=== PATIENT | female | born 1930 | race Caucasian/White ===

== ENCOUNTER 2016-06-30 16:28 | Emergency (ER) | payer MEDICARE, BC ==
[2016-06-30] MEDS ORDERED: Triamcinolone Acetonide* 40 MG/ML 1 ML VIAL INTRAARTIC ONE (17:55)
[2016-06-30] MEDS ORDERED: amLODIPine TAB* 5 MG PO ONE (18:50)
[2016-06-30] MEDS ORDERED: hydrALAZINE IV* 20 MG/ML VIAL IV SLOW PU ONE (18:50)
[2016-06-30] MEDS ORDERED: Metoprolol Tartrate TAB* 50 mg PO ONE (18:50)
[2016-06-30] MEDS ORDERED: Meclizine TAB* 12.5 MG PO ONE (18:51)
--- NOTE | 2016-06-30 18:52 | RAD ---
INDICATION: Atraumatic left hip pain COMPARISON: CT abdomen pelvis dated June 24, 2015 TECHNIQUE: 3 views of the left hip were obtained. FINDINGS: The visualized bones of the left hip are well-corticated and properly aligned. Mild degenerative changes of the left hip include mild joint space narrowing and sclerotic change of the acetabular roof.. There is no radiographic evidence of acute fracture or dislocation. Incidental note is made of calcified atherosclerosis involving the visualized left femoral arteries. IMPRESSION: 1. Mild degenerative changes of the left hip. 2. Incidentally noted is calcified atherosclerosis of the visualized iliofemoral arteries similar to that seen on the June 24, 2015 CT examination. Please correlate to any signs or symptoms of claudication pain as a source of the patient's complaint.
[2016-06-30 19:19] LABS: Hematocrit 41 % (35-47); Hemoglobin 13.4 g/dl (12.0-16.0); Mean Corpuscular HGB Conc 32 g/dl (31-36); Mean Corpuscular Hemoglobin 27 pg (27-31); Mean Corpuscular Volume 84 fL (80-97); Mean Platelet Volume 11 um3 (7.4-10.4); Red Blood Count 4.93 10^6/ul (4.0-5.4); Red Cell Distribution Width 15 % (10.5-15); White Blood Count 7.3 10^3/ul (3.5-10.8)
[2016-06-30 19:34] LABS: Albumin 3.7 g/dL (3.2-5.2); BUN/Creatinine Ratio 18.3 (8-20); Calcium 9.7 mg/dL (8.6-10.3); EGFR African American 51.5 (>60); EGFR Non-African American 40.1 (>60); Globulin 4.1 g/dL (2-4); Potassium 3.6 mmol/L (3.5-5.0); Total Bilirubin 0.3 mg/dL (0.2-1.0); Total Protein 7.8 g/dL (6.4-8.9)
[2016-06-30 20:40] VITALS: BP 154/81
[2016-06-30] MEDS ORDERED: NS 0.9% 1000 ML* 1,000 ML IV ONE (20:45)
[2016-06-30 21:27] LABS: C Reactive Protein 2.75 mg/L (< 5.00)
--- NOTE | 2016-06-30 22:10 | ED ---
Inez Eng Claudia, scribed for Louis aSrabia MD on 06/30/16 at 1749 . Lower Extremity - HPI Summary HPI Summary: 86 year old female presents to the ED with left hip pain. Pt notes sudden of Sx about 3 days ago. She denies any mechanical fall or trauma. Pt also admits to dizziness and right ear pain. Pt denies fever. N/V/D. Pt family deny any slurred speech, numbness or tingling in the extremities. Pt son notes that it hurts all the time the pain is not necessarily aggravated with movement or ambulation. - History of Current Complaint Chief Complaint: EDDizziness Stated Complaint: LT HIP PAIN Time Seen by Provider: 06/30/16 17:35 Hx Obtained From: Patient, Family/Lace Burn Out Tender, Medical Records Onset/Duration: Days Pain Intensity: 9 Pain Scale Used: 0-10 Numeric Location: Is Discrete @ - left hip Associated Signs And Symptoms: Negative: Redness, Bruising, Fever, Knee Pain - Allergies/Home Medications Allergies/Adverse Reactions: Allergies Allergy/AdvReac Type Severity Reaction Status Date / Time Prednisone Allergy Severe Hallucinati Verified 04/24/16 14:45 ons Sulfa Antibiotics Allergy Severe Hives Verified 04/24/16 14:45 Diltiazem Allergy Intermediate Hives Verified 04/24/16 14:45 Memantine [From Namenda] Allergy Unknown Unknown Verified 04/24/16 14:45 Reaction Details PMH/Surg Hx/FS Hx/Imm Hx Previously Healthy: Yes Endocrine/Hematology History: Reports: Hx Thyroid Disease, Hx Anemia Denies: Hx Diabetes Cardiovascular History: Reports: Hx Hypertension, Other Cardiovascular Problems/ Disorders - HX ARRYTHMIA Denies: Hx Congestive Heart Failure, Hx Pacemaker/ICD Respiratory History: Denies: Hx Asthma GI History: Reports: Hx Gastroesophageal Reflux Disease, Hx Gastrointestinal Bleed, Hx Ulcer - 3-5 years ago, none recent History: Denies: Hx Renal Disease Musculoskeletal History: Reports: Hx Arthritis Sensory History: Reports: Hx Cataracts - having surgery, Hx Contacts or Glasses - reading glasses Denies: Hx Hearing Aid Opthamlomology History: Reports: Hx Cataracts - having surgery, Hx Contacts or Glasses - reading glasses Neurological History: Reports: Hx Dementia, Other Neuro Impairments/Disorders - dementia Psychiatric History: Reports: Hx Depression, Hx Panic Disorder - SON IS CONCERNED - Cancer History Cancer Type, Location and Year: BREAST CA - DX 15-20 YRS AGO - Surgical History Surgery Procedure, Year, and Place: HYSTERECTOMY ;. DOUBLE MASECTOMY ;. ANNA IN STOMACH FOR BLEEDING ULCER - [facility] ; Hx Anesthesia Reactions: No Infectious Disease History: No Infectious Disease History: Denies: Traveled Outside the [place] in Last 30 Days - Family History Family History: No FHx of Malignant Hypothermia - Social History Occupation: Retired Lives: Alone Alcohol Use: None Substance Use Type: Reports: None Smoking Status (MU): Former Smoker Review of Systems Negative: Fever Eyes: Negative Positive: Ear Ache - right Cardiovascular: Negative Respiratory: Negative Negative: Vomiting, Diarrhea, Nausea Genitourinary: Negative Positive: Other - left hip pain Skin: Negative Negative: Paresthesia, Numbness, Slurred Speech Psychological: Normal All Other Systems Reviewed And Are Negative: Yes Physical Exam Triage Information Reviewed: Yes Vital Signs On Initial Exam: Initial Vitals Temp Pulse Resp BP Pulse Ox 98.1 F 78 18 181/84 100 06/30/16 16:36 06/30/16 16:36 06/30/16 16:36 06/30/16 16:36 06/30/16 16:36 Vital Signs Reviewed: Yes Appearance: Positive: Pain Distress - mild, continues to tell us her hip hurts Eyes: Positive: EOMI, Other: - no nystagmus ENT: Positive: Other - moist mucosa. TMs bilaterally pearly white with no redness some serous fluid present. Negative: Pharyngeal erythema Neck: Positive: Supple, Nontender. Negative: Nuchal Rigidity Cardiovascular: Positive: RRR, S1, S2. Negative: Murmur, Rub Abdomen Description: Positive: Nontender, Soft - flat Musculoskeletal: Positive: Other - tenderness over the left greater trochanter wiht femoral pulses intact. Hip adduction causes some pain along the lateral aspect of the thigh.. Negative: Edema Left, Edema Right Procedures - Procedure Summary Procedure Summary: Left hip consent and timeout verbal and on paper. Risks and benefits discussed with patient and she proceeded. In sterile fashion 40mg kenalog and 3cc of lidocaine without epinephrine. Left greater trochanter was peppered with mixture. Patient tolerated procedure well with no complications. Diagnostics - Vital Signs Vital Signs Temp Pulse Resp BP Pulse Ox 06/30/16 16:36 98.1 F 78 18 181/84 100 - Laboratory Lab Results: Lab Results 06/30/16 06/30/16 Range/Units 18:30 18:30 WBC 7.3 (3.5-10.8) 10^3/ul RBC 4.93 (4.0-5.4) 10^6/ul Hgb 13.4 (12.0-16.0) g/dl Hct 41 (35-47) % MCV 84 (80-97) fL MCH 27 (27-31) pg MCHC 32 (31-36) g/dl RDW 15 (10.5-15) % Plt Count 199 (150-450) 10^3/ul MPV 11 H (7.4-10.4) um3 Neut % (Auto) 72.5 (38-83) % Lymph % (Auto) 17.8 L (25-47) % Mcduffie % (Auto) 7.4 (1-9) % Eos % (Auto) 1.8 (0-6) % Baso % (Auto) 0.5 (0-2) % Absolute Neuts (auto) 5.3 (1.5-7.7) 10^3/ul Absolute Lymphs (auto) 1.3 (1.0-4.8) 10^3/ul Absolute Monos (auto) 0.5 (0-0.8) 10^3/ul Absolute Eos (auto) 0.1 (0-0.6) 10^3/ul Absolute Basos (auto) 0 (0-0.2) 10^3/ul Absolute Nucleated RBC 0.01 10^3/ul Nucleated RBC % 0.1 Sodium 140 (133-145) mmol/L Potassium 3.6 (3.5-5.0) mmol/L Chloride 104 (101-111) mmol/L Carbon Dioxide 29 (22-32) mmol/L Anion Gap 7 (2-11) mmol/L BUN 23 (6-24) mg/dL Creatinine 1.26 H (0.51-0.95) mg/dL Est GFR ( Amer) 51.5 (>60) Est GFR (Non-Af Amer) 40.1 (>60) BUN/Creatinine Ratio 18.3 (8-20) Glucose 92 (70-100) mg/dL Calcium 9.7 (8.6-10.3) mg/dL Total Bilirubin 0.30 (0.2-1.0) mg/dL AST 21 (13-39) U/L ALT 12 (7-52) U/L Alkaline Phosphatase 63 (34-104) U/L C-Reactive Protein 2.75 (< 5.00) mg/L Total Protein 7.8 (6.4-8.9) g/dL Albumin 3.7 (3.2-5.2) g/dL Globulin 4.1 H (2-4) g/dL Albumin/Globulin Ratio 0.9 L (1-3) Result Diagrams: 06/30/16 18:30 06/30/16 18:30 Lab Statement: Any lab studies that have been ordered have been reviewed, and results considered in the medical decision making process. - Radiology LEFT HIP XRAY Xray Interpretation: No Acute Changes - MILD DEGENERATIVE CHANGES OF THE LEFT HIP INCIDENTIALLY NOTED IS CALCIFIED ARTHROSCLEROSIS OF THE VISUALIZED ILIOFEMORAL ARTERIES SIMIALR TO THAT SEEN ON THE May CT EXAMINATION. PLEASE CORRELATE TO ANY SIGNS OR SYMPTOMS OF CLAUDICATION A SOURCE OF THE PATIENT'S COMPLAINT. Radiology Interpretation Completed By: Radiologist - EKG 16:54 Cardiac Rate: NL - 84 beats/min EKG Interpretation: RBBB non changed from previous Lower Extremity Course/Dx - Course Assessment/Plan: She had hip pain HTN reported dizziness; she is doing much better in regard to all of these. She has been ambulated by the nurse and did quite well going to the bathroom has two very attentive sons who are quite helpful and live on either side of her. I believe she is safe for d/c. - Diagnoses Provider Diagnoses: Greater trochanteric bursitis of left hip, HTN (hypertension), Dizziness Discharge - Discharge Plan Condition: Good Disposition: HOME Patient Education Materials: Chronic Hypertension (ED), Dizziness (ED), Hip Pain (ED) Referrals: Keon Manzano DO [Primary Care Provider] - 1 Day The documentation as recorded by the Inez roldan Claudia accurately reflects the service I personally performed and the decisions made by me, Louis Sarabia MD.
== END 2016-06-30 21:51 | disposition home or self-care (01) ==
LOC: ED 16:28
DX: M70.62 Trochanteric bursitis, left hip (principal); I10 Essential (primary) hypertension; R42 Dizziness and giddiness; K21.9 Gastro-esophageal reflux disease without esophagitis; Z85.3 Personal history of malignant neoplasm of breast; F03.90 Unspecified dementia, unspecified severity, without behavioral disturbance, psychotic disturbance, mood disturbance, and anxiety; F32.9 Major depressive disorder, single episode, unspecified; Z87.891 Personal history of nicotine dependence; Z88.2 Allergy status to sulfonamides; E07.9 Disorder of thyroid, unspecified
CPT/HCPCS: 36415; 80053; 85025; 86140; 93005; 99283; A9270-GY; J0360; J3301

== ENCOUNTER 2017-03-16 09:56 | Inpatient (IN) | payer MEDICARE, BC ==
[2017-03-16] MEDS ORDERED: NS 0.9% 1000 ML* 1,000 ML IV ONE (10:15)
--- NOTE | 2017-03-16 10:53 | RAD ---
Indication: Slurred speech yesterday with RIGHT-sided weakness and unsteady gait. Code rico. Comparison: June 24, 2015 Technique: Noncontrast CT vertex of skull through foramen magnum. Report: Severe prominence of the cerebral sulci and moderately severe prominence of the cerebellar fissures with proportional ventricular enlargement reflecting atrophy. Patent basal cisterns. Negative for rioc matter white matter obscuration, intra or extra-axial hemorrhage, or mass effect. Unremarkable orbital structures. Arachnoid granulations noted at the occiput of the skull. No suspicious calvarial or skull base lesions evident. Clear visualized paranasal sinuses and mastoid air spaces. Negative for scalp hematoma. IMPRESSION: No CT evidence for intracranial hemorrhage or gross CT stigmata of ischemic stroke. Advanced involutional change. Results discussed with Dr. Singer 03/16/2017 10:48 AM EDT
--- NOTE | 2017-03-16 11:01 | RAD ---
Indication: Strokelike symptoms beginning yesterday. Comparison: June 25, 2015 chest radiograph. March 13, 2017 esophagram. Technique: Upright AP 1033 hours Report: Mild prominence of interstitial markings. No pulmonary consolidation, pleural effusion, pneumothorax. Unchanged cardiomegaly. Unremarkable central pulmonary vasculature and mediastinal contours. Barium contrast at the splenic flexure of the colon from the recent esophagram. Negative for free air beneath the diaphragm. IMPRESSION: Cardiomegaly. No acute cardiopulmonary process evident.
[2017-03-16 11:03] LABS: Hematocrit 36 % (35-47); Hemoglobin 11.9 g/dl (12.0-16.0); Mean Corpuscular HGB Conc 33 g/dl (31-36); Mean Corpuscular Hemoglobin 28 pg (27-31); Mean Corpuscular Volume 86 fL (80-97); Mean Platelet Volume 10 um3 (7.4-10.4); Red Cell Distribution Width 16 % (10.5-15); White Blood Count 11.3 10^3/ul (3.5-10.8)
[2017-03-16 11:15] LABS: Albumin 3.6 g/dL (3.2-5.2); BUN/Creatinine Ratio 16.7 (8-20); Calcium 9.7 mg/dL (8.6-10.3); EGFR African American 54.4 (>60); EGFR Non-African American 42.3 (>60); Globulin 3.8 g/dL (2-4); Potassium 3.9 mmol/L (3.5-5.0); Total Bilirubin 1.1 mg/dL (0.2-1.0); Total Protein 7.4 g/dL (6.4-8.9)
[2017-03-16 11:17] LABS: Troponin I 0.03 ng/mL (<0.04)
[2017-03-16] MEDS ORDERED: Aspirin SUPP* 300 MG PR ONE (11:48)
[2017-03-16 12:20] LABS: HDL Cholesterol 40.6 mg/dL
--- NOTE | 2017-03-16 13:14 | ED ---
Lee Eng SooYoung, scribed for Evan Singer MD on 03/16/17 at 1006 . Neurological HPI - HPI Summary HPI Summary: An 87 y/o F with alz presents to ED with neurological deficits onset yesterday initially noticed at approx 0800. Per family, pt was ambulatory but was dragging her RLE, due to possible RLE weakness. Family also noted pt had slurred speech. Per famly, pt fell on 02/28/17, she was found on the bathroom and taken to [facility]. She was released from the hospital on 03/07/17, with Dx: concussion, no internal bleeding found. Pt is not on blood thinners. - History of Current Complaint Chief Complaint: EDNeurologicalDeficit Stated Complaint: STOKE LIKE SYMPTOMS STARTED YESTERDAY Hx Obtained From: Family/Lamp Shades Supervisor Onset/Duration: Started days ago - onset yesterday AM, Still Present Timing: Constant Onset Severity: Moderate Current Severity: Moderate Pain Intensity: 0 Pain Scale Used: 0-10 Numeric Associated Signs and Symptoms: Positive: Unsteady Gait - RLE dragging, Weakness - RLE, Impaired Speech - slurred speech - Additional Pertinent History Primary Care Physician: [id number] - Allergy/Home Medications Allergies/Adverse Reactions: Allergies Allergy/AdvReac Type Severity Reaction Status Date / Time Prednisone Allergy Severe Hallucinati Verified 04/24/16 14:45 ons Sulfa Antibiotics Allergy Severe Hives Verified 04/24/16 14:45 Diltiazem Allergy Intermediate Hives Verified 04/24/16 14:45 Memantine [From Namenda] Allergy Unknown Unknown Verified 04/24/16 14:45 Reaction Details PMH/Surg Hx/FS Hx/Imm Hx Previously Healthy: No Endocrine/Hematology History: Reports: Hx Thyroid Disease, Hx Anemia Denies: Hx Diabetes Cardiovascular History: Reports: Hx Hypertension, Other Cardiovascular Problems/ Disorders - HX ARRYTHMIA Denies: Hx Congestive Heart Failure, Hx Pacemaker/ICD Respiratory History: Denies: Hx Asthma GI History: Reports: Hx Gastroesophageal Reflux Disease, Hx Gastrointestinal Bleed, Hx Ulcer - 3-5 years ago, none recent History: Denies: Hx Renal Disease Musculoskeletal History: Reports: Hx Arthritis Sensory History: Reports: Hx Cataracts - having surgery, Hx Contacts or Glasses - reading glasses Denies: Hx Hearing Aid Opthamlomology History: Reports: Hx Cataracts - having surgery, Hx Contacts or Glasses - reading glasses Neurological History: Reports: Hx Dementia, Other Neuro Impairments/Disorders - dementia Psychiatric History: Reports: Hx Depression, Hx Panic Disorder - SON IS CONCERNED - Cancer History Cancer Type, Location and Year: BREAST CA - DX 15-20 YRS AGO - Surgical History Surgery Procedure, Year, and Place: HYSTERECTOMY ;. DOUBLE MASECTOMY ;. ANNA IN STOMACH FOR BLEEDING ULCER - [facility] ; Hx Anesthesia Reactions: No Infectious Disease History: No Infectious Disease History: Denies: Traveled Outside the [place] in Last 30 Days - Family History Family History: No FHx of Malignant Hypothermia - Social History Occupation: Retired Lives: With Family Alcohol Use: None Hx Substance Use: No Substance Use Type: Reports: None Hx Tobacco Use: Yes Smoking Status (MU): Former Smoker Review of Systems Negative: Fever Neurological: Other - pos: RLE "dragging" Positive: Weakness - RLE, Slurred Speech All Other Systems Reviewed And Are Negative: Yes Physical Exam - Summary Physical Exam Summary: VITAL SIGNS: Reviewed. GENERAL: Patient is a well-developed and nourished elderly female who is lying comfortable in the stretcher. Patient is not in any acute respiratory distress. HEAD AND FACE: No signs of trauma. No ecchymosis, hematomas or skull depressions. No sinus tenderness. EYES: PERRLA, EOMI x 2, No injected conjunctiva, no nystagmus. No photophobia. EARS: Hearing grossly intact. Ear canals and tympanic membranes are within normal limits. MOUTH: Oropharynx within normal limits. NECK: Supple, trachea is midline, no adenopathy, no JVD, no carotid bruit, no c- spine tenderness, neck with full ROM. No meningeal signs, no Kernig's or Brudzinskis signs. CHEST: Symmetric, no tenderness at palpation LUNGS: Clear to auscultation bilaterally. No wheezing or crackles. CVS: Regular rate and rhythm, S1 and S2 present, no murmurs or gallops appreciated. ABDOMEN: Soft, non-tender. No signs of distention. No rebound, no guarding, and no masses palpated. Bowel sounds are normal. EXTREMITIES: FROM in all major joints, no edema, no cyanosis or clubbing. NEURO: Alert but not oriented. No acute neurological deficits. Speech is normal and follows commands. SKIN: Dry and warm GCS: 15 Triage Information Reviewed: Yes Vital Signs On Initial Exam: Initial Vitals Temp Pulse Resp BP Pulse Ox 97.8 F 79 14 134/75 99 03/16/17 09:57 03/16/17 09:57 03/16/17 09:57 03/16/17 09:57 03/16/17 09:57 Vital Signs Reviewed: Yes Diagnostics - Vital Signs Vital Signs Temp Pulse Resp BP Pulse Ox 03/16/17 09:57 97.8 F 79 14 134/75 99 - Laboratory Lab Results: Lab Results 03/16/17 03/16/17 03/16/17 Range/Units 10:40 10:40 10:40 WBC 11.3 H (3.5-10.8) 10^3/ul RBC 4.20 (4.0-5.4) 10^6/ul Hgb 11.9 L (12.0-16.0) g/dl Hct 36 (35-47) % MCV 86 (80-97) fL MCH 28 (27-31) pg MCHC 33 (31-36) g/dl RDW 16 H (10.5-15) % Plt Count 319 (150-450) 10^3/ul MPV 10 (7.4-10.4) um3 Neut % (Auto) 84.6 H (38-83) % Lymph % (Auto) 5.7 L (25-47) % Johnston % (Auto) 9.3 H (1-9) % Eos % (Auto) 0 (0-6) % Baso % (Auto) 0.4 (0-2) % Absolute Neuts (auto) 9.6 H (1.5-7.7) 10^3/ul Absolute Lymphs (auto) 0.6 L (1.0-4.8) 10^3/ul Absolute Monos (auto) 1.1 H (0-0.8) 10^3/ul Absolute Eos (auto) 0 (0-0.6) 10^3/ul Absolute Basos (auto) 0 (0-0.2) 10^3/ul Absolute Nucleated RBC 0 10^3/ul Nucleated RBC % 0 INR (Anticoag Therapy) 0.97 (0.89-1.11) APTT 25.9 L (26.0-36.3) seconds Sodium 137 (133-145) mmol/L Potassium 3.9 (3.5-5.0) mmol/L Chloride 104 (101-111) mmol/L Carbon Dioxide 27 (22-32) mmol/L Anion Gap 6 (2-11) mmol/L BUN 20 (6-24) mg/dL Creatinine 1.20 H (0.51-0.95) mg/dL Est GFR ( Amer) 54.4 (>60) Est GFR (Non-Af Amer) 42.3 (>60) BUN/Creatinine Ratio 16.7 (8-20) Glucose 109 H (70-100) mg/dL Lactic Acid (0.5-2.0) mmol/L Calcium 9.7 (8.6-10.3) mg/dL Total Bilirubin 1.10 H (0.2-1.0) mg/dL AST 21 (13-39) U/L ALT 13 (7-52) U/L Alkaline Phosphatase 89 (34-104) U/L Troponin I 0.03 (<0.04) ng/mL Total Protein 7.4 (6.4-8.9) g/dL Albumin 3.6 (3.2-5.2) g/dL Globulin 3.8 (2-4) g/dL Albumin/Globulin Ratio 0.9 L (1-3) Triglycerides 106 mg/dL Cholesterol 171 mg/dL LDL Cholesterol Pending HDL Cholesterol Pending Blood Type Antibody Screen 03/16/17 03/16/17 Range/Units 10:40 10:40 WBC (3.5-10.8) 10^3/ul RBC (4.0-5.4) 10^6/ul Hgb (12.0-16.0) g/dl Hct (35-47) % MCV (80-97) fL MCH (27-31) pg MCHC (31-36) g/dl RDW (10.5-15) % Plt Count (150-450) 10^3/ul MPV (7.4-10.4) um3 Neut % (Auto) (38-83) % Lymph % (Auto) (25-47) % Johnston % (Auto) (1-9) % Eos % (Auto) (0-6) % Baso % (Auto) (0-2) % Absolute Neuts (auto) (1.5-7.7) 10^3/ul Absolute Lymphs (auto) (1.0-4.8) 10^3/ul Absolute Monos (auto) (0-0.8) 10^3/ul Absolute Eos (auto) (0-0.6) 10^3/ul Absolute Basos (auto) (0-0.2) 10^3/ul Absolute Nucleated RBC 10^3/ul Nucleated RBC % INR (Anticoag Therapy) (0.89-1.11) APTT (26.0-36.3) seconds Sodium (133-145) mmol/L Potassium (3.5-5.0) mmol/L Chloride (101-111) mmol/L Carbon Dioxide (22-32) mmol/L Anion Gap (2-11) mmol/L BUN (6-24) mg/dL Creatinine (0.51-0.95) mg/dL Est GFR ( Amer) (>60) Est GFR (Non-Af Amer) (>60) BUN/Creatinine Ratio (8-20) Glucose (70-100) mg/dL Lactic Acid 1.2 (0.5-2.0) mmol/L Calcium (8.6-10.3) mg/dL Total Bilirubin (0.2-1.0) mg/dL AST (13-39) U/L ALT (7-52) U/L Alkaline Phosphatase (34-104) U/L Troponin I (<0.04) ng/mL Total Protein (6.4-8.9) g/dL Albumin (3.2-5.2) g/dL Globulin (2-4) g/dL Albumin/Globulin Ratio (1-3) Triglycerides mg/dL Cholesterol mg/dL LDL Cholesterol HDL Cholesterol Blood Type A Positive Antibody Screen Pending Result Diagrams: 03/16/17 10:40 03/16/17 10:40 Lab Statement: Any lab studies that have been ordered have been reviewed, and results considered in the medical decision making process. - Radiology CXR Xray Interpretation: No Acute Changes - IMPRESSION: Cardiomegaly. No acute cardiopulmonary process evident. ED physician has reviewed this radiology report and agrees Radiology Interpretation Completed By: Radiologist - CT Brain CT CT Interpretation: No Acute Changes - IMPRESSION: No CT evidence for intracranial hemorrhage or gross CT stigmata of ischemic stroke. Advanced involutional change. ED physician has reviewed this radiology report and agrees. CT Interpretation Completed By: Radiologist - EKG 1052 EKG Rhythm: Atrial Fibrillation - at 69bpm EKG Comparison: No Significant Change - from 06/30/16 NIH Scale - NIH Scale Level of Consciousness: Alert/Keenly Responsive Ask Patient the Month and His/Her Age: Neither Correct/Aphasic Ask Pt to Open/Close Eyes and Corporate Auditor/Release Non-Paretic Hand: Both Correctly Best Gaze (Only Horizontal Eye Movement): Normal Visual Field Testing: No Visual Loss Facial Paresis-Pt to Smile & Close Eyes or Grimace Symmetry: Normal/Symmetrical Motor Function - Right Arm: No Drift-Holds 10 Seconds Motor Function - Left Arm: No Drift-Holds 10 Seconds Motor Function - Right Leg: Drifts LT 10 seconds Motor Function - Left Leg: No Drift-Holds 10 Seconds Limb Ataxia-Must be out of Proportion to Weakness Present: Present in One Limb Sensory (Use Pinprick to Test Arms/Legs/Trunk/Face): Normal Best Language (Describe Picture, Name Items): No Aphasia Dysarthria (Read Several Words): Normal Extinction and Inattention: No Abnormality Total Score: 4 Course/Dx - Course Course Of Treatment: An 87 y/o F with alz presents to ED with neurological deficits onset yesterday initially noticed at approx 0800. Per family, pt was ambulatory but was dragging her RLE, due to possible RLE weakness. Family also noted pt had slurred speech. Per famly, pt fell on 02/28/17, she was found on the bathroom and taken to [facility]. She was released from the hospital on 03/07/17, with Dx: concussion, no internal bleeding found. Pt is not on blood thinners. Brain CT shows "No CT evidence for intracranial hemorrhage or gross CT stigmata of ischemic stroke. Advanced involutional change." Assessment/Plan: In the ED course an IV access was obtained. Patient was placed in a quality assurance monitor. Patient was started with IV fluids. Labs within normal limits except for. Troponin #1: 0.03. EKG shows atrial fibrillation similar to previous. CXR impression: No acute pathology. Head CT impression: No CT evidence for intracranial hemorrhage or gross CT stigmata of ischemic stroke. Advanced involutional change. She was started in [facility]. I discussed the case with Dr. Holder from Neurology and agrees with management and he recommends to admit the patient to the hospitalist services. I discuss my physical exam, findings and test results with Dr. Goodwin from the hospitalist services and she agrees to admit patient to his services. Patient is hemodynamically stable alert but not oriented. - Differential Dx Differential Diagnoses Neuro: Positive: Cerebrovascular Accident, Contusion, Seizure Disorder, Transient Ischemic Attack - Diagnoses Provider Diagnoses: CVA (cerebral vascular accident) - Physician Notifications Discussed Care Of Patient With: Evan Mondragon - radiology Time Discussed With Above Provider: 10:49 Instructed by Provider To: Other - Discussing Brain CT: atrophy, no acute findings. Discharge - Discharge Plan Condition: Stable Disposition: ADMITTED TO [facility] Consult Consult: 1115: Consult with Dr. Holder, neuro Recommends aspirin and admission. 1140: Consult with Dr. Goodwin, hospitalist Will admit pt. The documentation as recorded by the Lee roldan SooYoung accurately reflects the service I personally performed and the decisions made by me, Eavn Singer MD.
[2017-03-16] MEDS ORDERED: Labetalol IV* 5 MG/ML 20 ML VIAL IV PUSH PRN (13:15)
[2017-03-16] MEDS ORDERED: Iodixanol* (CONTRAST) 320 MG/ML 100 ML SDV IV ONE (13:38)
[2017-03-16 14:49] LABS: Free T4 1.39 ng/dL (0.61-1.12)
[2017-03-16 14:57] LABS: Folate 14.19 ng/mL (>3.99)
[2017-03-16 14:58] LABS: Vitamin B12 > 1450 pg/mL (180-914)
--- NOTE | 2017-03-16 15:42 | CONS ---
CONSULTATION REPORT: DATE OF CONSULT: 03/16/17 LOCATION: Currently in room 451, bed 1. REASON FOR CONSULT: Right lower extremity weakness. HISTORY OF PRESENT ILLNESS: Ms. Schroeder is an 87-year-old female with a history of breast cancer status post bilateral mastectomy, a history of dementia, a history of hypertension and hypothyroidism who came to the hospital today after developing acute onset of right lower extremity weakness and speech difficulties yesterday at around 8 a.m. She was recently transported to [place] after sustaining a fall 2 weeks ago. At that time, she did suffer some head trauma, was admitted to the hospital and monitored for 5 days. The family reports that the workup was negative and that she had no bleeding. She was eventually discharged last week. She has been at home for about a week and the family states that she was doing well recovering, was initially using a walker but had stopped using it. Normally, she is functional. She lives with her daughter, but is able to do all of her ADL's and normally is conversant, although confused. She was previously on dementia medications, but when she was in [place], the family reported that she had been having significant diarrhea and the medications were stopped. The family felt that the benefit was minimal at that point. She apparently does not take an aspirin at home, but does take blood pressure medication. Yesterday, at around 8 a.m. she got up and daughter notes that she suddenly started to feel off balance and had difficulty moving her right leg. Her daughter states that she was dragging that leg. In addition, she developed some speech difficulties, was having more difficulty producing speech and saying words. This persisted throughout the day and overnight, and this morning the family became worried and brought her to the ER. She was well outside of the TPA window. The family states that her symptoms have persisted and are about the same, have not improved. They state that she has not complained of any headache, shortness of breath, dyspnea on exertion, nausea, vomiting, constipation. Has had some recent diarrhea, but that has improved off the dementia medication. She has had no focal left-sided findings. The family does note that she has had some problem swallowing and she was recently sent for a modified barium swallow for evaluation. The family states that she had trouble swallowing solids and often times felt like food would not go down despite multiple drinks of water. She has apparently not choked at this point. This is a relatively new finding in the last month or so. There has been no recent fevers. No recent illnesses. No reports of chest pain or palpitations. No additional falls since 2 weeks ago and no additional head trauma. The patient is a very poor historian and unable to give any history. The family was the primary source of history. PAST MEDICAL HISTORY: As noted above. PAST SURGICAL HISTORY: Includes the bilateral mastectomies. MEDICATIONS: Her medications at home include: 1. Metoprolol 150 mg p.o. b.i.d. 2. Levothyroxine 50 mcg p.o. daily. 3. Vitamin B12 tablet 2500 mcg daily. 4. Vitamin D3 5000 units daily. 5. Calcium carbonate 0.5 tablets p.o. daily. ALLERGIES: PREDNISONE, SULFA ANTIBIOTICS, DILTIAZEM, and MEMANTINE. SOCIAL HISTORY: No tobacco, alcohol, or drug use. She lives with her daughter. She previously was and worked as a homemaker. REVIEW OF SYSTEMS: Review of systems in 14-organ systems was attempted. The patient has a difficult time expressing herself and the review of systems is as noted above per the family. Otherwise, the patient denies any issues. It was a difficult review of systems. PHYSICAL EXAM: Vital Signs: Blood pressure 148/97 to 164/87, pulse in the 70s , respiratory rate 16 to 18, pulse ox is 98% to 99%. In general, she is a well - nourished, well-developed female in no acute distress, sitting in her hospital bed. She does look somewhat confused. HEENT: She is normocephalic. She does have bruising around the right eye on the cheek. Her sclerae are anicteric. Her mucous membranes are moist. Her oropharynx is clear. Her neck is supple. No thyromegaly. No carotid bruits. Chest: Clear to auscultation bilaterally. Cardiovascular: Regular rate and rhythm without murmurs. Abdomen : Nontender, nondistended. Extremities: There is no clubbing, cyanosis, or edema appreciated. On neurologic examination, she is awake, alert and oriented to person. Otherwise, she is disoriented. Her speech is nonfluent at this point. She occasionally could produce a word, although it was garbled and was unable to string together sentences. She did follow commands. Cranial nerves; pupils are equally round and reactive to light. Extraocular muscles are intact. Her visual sterling appear full to confrontation with blink. There is no nystagmus appreciated. Her face, she has a subtle right lower facial droop with weakened smile. Sensation is difficult to assess, but appears to be intact. Hearing appears diminished bilaterally, but intact. Her tongue is midline. Her palate raises symmetrically. Sternocleidomastoid and trapezius were difficult to assess. Motor Exam: She spontaneously moves all extremities antigravity. There is no drift in the upper extremities. There is significant drift in the right lower extremity. She is unable to lift it off the bed, but unable to maintain it 30 degrees for more than a few seconds. Her left leg, there is no drift appreciated. In general, she is 4+/5 in the upper extremities with some poor effort. She is 4+/5 in the left lower extremity with poor effort and the right lower extremity was difficult to fully assess, but there is resistance throughout the upper and lower extremity. Sensation was grossly intact to light touch and pain. She withdrew and grimaced x4. DTRs were 1+ in the upper extremities bilaterally, 1+ at the patella bilaterally, absent at the ankles. Withdrawal Babinski's bilaterally. Finger-to- nose and [id number] could not be done, because she was unable to comply and fully understand, but her rapid alternating movements appear slow but intact. No tremor was appreciated. Gait was not tested at this time. DIAGNOSTIC STUDIES/LAB DATA: Her lab work included CBC with diff with a white count of 11.3, hemoglobin of 11.9. She has a left shift with 84.6% neutrophils. INR 0.97. PTT of 25.9. Chemistry; creatinine of 1.20, glucose of 109, total bili of 1.10, otherwise normal. Her LDL cholesterol 109, HDL of 40.6 , cholesterol 171, triglycerides of 106. Report: She did have a brain which was reviewed. The CT showed no acute changes per my read. The impression is read as no CT evidence of intracranial hemorrhage or gross CT stigmata of ischemic stroke. Advanced involutional changes were noted. ASSESSMENT AND PLAN: Ms. Schroeder is an 87-year-old female with a history of breast cancer status post mastectomies, a history of hypertension, a history of prior fall 2 weeks ago, transferred to the [facility] where the family reports that the workup was negative. She was discharged home and doing well when she developed acute onset of right lower extremity weakness and speech difficulty. She does have [id number] dementia, but is typically able to function at home living with her daughter to participate in her ADLs. Since 8 o'clock yesterday morning, she has had more difficulty walking and noted weakness in the right lower extremity and what appears to be more of an expressive type aphasia. She is able to follow commands in general and seems to understand what I am saying, but has a very hard time expressing herself. In addition, she has had some dysphagia which has been ongoing for at least several weeks and predates her symptoms. The plan is to admit the patient to telemetry for further monitoring and stroke workup. She will have an MRI of the brain tomorrow. We will get a CTA of the head and neck, an echocardiogram and lab work to look for reversible causes of stroke. We will allow for some permissive hypertension overnight and she did receive a dose of aspirin in the ER. We will continue on 81 mg aspirin. She is currently n.p.o. and Speech Therapy has been consulted. We will also attempt to find the report on her recent swallowing study. For now though, we will keep her n.p.o. pending those results. We will likely start a statin, but I think we can hold until we have a swallowing study. She will need some physical therapy, occupational therapy as well as speech therapy. She is a nondiabetic, but we will monitor for any evidence of diabetes. She is a nonsmoker. As far as her dementia is concerned, I will keep her off medications at this point as she had side effects in the past with diarrhea. This is something that will need to be followed more skilled nursing, but the family is comfortable with her not being on medications at this point. I will continue to follow her closely, make further recommendations as necessary. Thank you for the opportunity to participate in her care. [id number]/[facility] #: [id number] PRINCESS
[2017-03-16 15:46] LABS: Urine Bilirubin Negative (Negative); Urine Glucose Negative (Negative); Urine Nitrite Negative (Negative)
--- NOTE | 2017-03-16 16:01 | RAD ---
INDICATION: Suspected stroke. COMPARISON: Noncontrast head CT of the same date. June 02, 2013 CT angiogram head and neck. TECHNIQUE: Multidetector CT images were obtained from the aortic arch to the vertex of the head with 80 mL Visipaque 320 IV contrast. Arterial phase of enhancement. Multiplanar reformation including maximum intensity projection. 3-D arterial volume rendering. Stenosis estimations based on denominator of distal arterial diameter. NECK ANGIOGRAM REPORT: Negative for ostial stenosis at the aortic arch branch vessels. Markedly tortuous RIGHT brachiocephalic and common carotid artery. Mild calcific plaque at the RIGHT carotid bulb and proximal internal carotid artery with approximate 40% stenosis resulting. Markedly tortuous LEFT common carotid artery. Only minimal calcific plaque at the LEFT carotid bulb and proximal internal carotid artery without resulting stenosis. Markedly tortuous LEFT internal carotid artery. Patent diminutive RIGHT vertebral artery. Dominant LEFT vertebral artery is patent. Multilevel degenerative cervical spondylosis and grossly unchanged degenerative 2.5 mm C4-C5 anterolisthesis. Negative for central canal stenosis. NECK ANGIOGRAM IMPRESSION: Negative for hemodynamic significant carotid artery stenosis. Normal variant dominant LEFT and diminutive RIGHT vertebral artery with both vertebral arteries patent. HEAD ANGIOGRAM REPORT: Atherosclerotic plaque at the carotid siphons with up to 50% stenosis resulting. Patent M1 and M2 segments of the middle cerebral arteries. Normal variant absent LEFT A1 segment with both A2 anterior cerebral arteries patent and supplied by a dominant LEFT A1 segment. Patent tortuous basilar artery and unremarkable cerebellar artery origins. Patent posterior cerebral arteries are supplied by the posterior circulation with normal variant hypoplastic posterior communicating arteries. No intracranial aneurysm or vascular malformation evident. Normal opacification of the dominant dural venous sinuses. HEAD ANGIOGRAM IMPRESSION: Normal variation without hemodynamic significant intracranial stenosis or large vessel occlusion. CPT II: CPT II Codes: 3100F
[2017-03-16] MEDS: NS 0.9% 1000 ML* 1,000 ML IV SCH (19:53)
[2017-03-16] MEDS: Heparin VIAL(*) 5000 UNITS/ML VIAL (FIVE THOUSAND) SUBCUT SCH (21:15)
--- NOTE | 2017-03-16 22:30 | HP ---
CC: Dr. Keon Manzano * HISTORY AND PHYSICAL: DATE OF ADMISSION: 03/16/17 PRIMARY CARE PROVIDER: Dr. Keon Manzano ATTENDING PHYSICIAN: Rocio Perry MD * (dictated by Rd Gandhi NP). CHIEF COMPLAINT: Right-sided weakness and slurred speech. HISTORY OF PRESENT ILLNESS: Ms. Schroeder is an 87-year-old female with past medical history significant for atrial fibrillation, off anticoagulation, hypertension, hypothyroidism, dementia, depression, history of gastric ulcer, who presented to the emergency room with concerns for right lower extremity weakness and speech difficulties. I would like to start this H and P by stating that there was no family at bedside at the time of my evaluation of the patient. The medical record was obtained from the chart. According to the patient's chart, it appears that starting approximately 8 a.m. yesterday, the patient was noted to be dragging her right foot when walking and having speech difficulty. She lives with her daughter. She had last been seen well, I believe, yesterday at 7:30 a.m. The patient went throughout her day and as these symptoms continued, the family decided to bring her to the emergency room for evaluation. According to the records, the patient had no recent complaints of fever or chills, shortness of breath, or complaints of headache. She was just hospitalized in [place] 2 weeks ago after a head trauma where she was hospitalized for 5 days and then has been home for approximately a week. It is also to note that the patient has been having trouble swallowing. On 03/13/17, she had a barium swallow study showing a delayed passage of a 1.3 cm barium pill at the esophageal junction. The patient herself is a poor historian due to her underlying dementia. While in the emergency room, the patient had a brain CT showing no intracranial hemorrhage or CVA. She was out of the tPA window. She had an EKG showing a rhythm of AFib and a rate of 69 and a right bundle branch block. This EKG was similar to her previous EKGs. She had a chest x-ray showing cardiomegaly. She had labs. They were significant for an elevated white blood cell count of 11.3. She was noted to have a left shift with neutrophils of 84.6%. She was also noted to have a creatinine of 1.24, but this appears to be within her baseline over the past year and a half and the hospitalists were asked to evaluate the patient for admission. PAST MEDICAL HISTORY: 1. Atrial fibrillation, not currently anticoagulated. 2. Hypertension. 3. Hypothyroidism. 4. Dementia. 5. Depression. 6. Gastric ulcer. 7. Anemia. 8. History of upper GI bleed. 9. Vertigo. 10. History of breast cancer. PAST SURGICAL HISTORY: 1. Status post hysterectomy. 2. Status post bilateral mastectomy. HOME MEDICATIONS: 1. Metoprolol tartrate 150 mg oral twice daily. 2. Levothyroxine 50 mcg oral daily. 3. Vitamin B12 2500 mcg oral daily. 4. Vitamin D 5000 units oral daily. 5. Os-Ced 500 plus D half a tablet oral daily. ALLERGIES: PREDNISONE, SULFA, DILTIAZEM, and NAMENDA. FAMILY HISTORY: Unable to obtain due to the patient's dementia. SOCIAL HISTORY: According to the record, the patient does not smoke, drink alcohol, or use recreational drugs. She lives with her son. Her son Popeye Schroeder will be her surrogate decision maker in the event that she is unable to make decisions for herself. REVIEW OF SYSTEMS: I performed a 14-point review of systems. All the pertinent positives and negatives are mentioned in the history of present illness. It is to note that the patient has been having diarrhea that has improved since stopping Namenda. The remaining review of systems are negative. PHYSICAL EXAMINATION GENERAL: The patient is alert, pleasant, appears to be in no acute distress. VITAL SIGNS: Temperature 97.8, heart rate 77, respiratory rate 16, O2 saturation 99% on room air, blood pressure 148/97. HEENT: Normocephalic, atraumatic. Pupils are equal and reactive to light. Extraocular movements are intact. There is no nystagmus noted. RESPIRATORY: There is no accessory muscle use. Lungs are clear to auscultation bilaterally. CARDIOVASCULAR: Regular rate and rhythm. S1 and S2 present. There are no murmurs, rubs, or gallops heard. ABDOMEN: Soft, nontender, nondistended. There are bowel sounds present x4. EXTREMITIES: There is no lower extremity edema. DP and PT pulses are 2+ and symmetric. MUSCULOSKELETAL: There is no clubbing or cyanosis noted. The patient exhibits 5/5 strength to the left lower extremity and 4/5 to the right lower extremity. The patient is able to plantar flex bilateral, but is unable to follow the directions to dorsiflex. NEUROLOGICAL: The patient is alert and oriented to self, but confused. Cranial nerves II through XII are grossly intact with what the patient was able to follow instructions with. Smile is symmetric. Tongue is midline. The patient was unable to follow my directions to do heel from ankle to knee bilateral. No pronator drift was noted. PSYCHOLOGICAL: The patient is calm and cooperative. SKIN: There is no rashes or abnormalities seen. DIAGNOSTIC STUDIES/LABORATORY DATA: Sodium 137, potassium 3.9, chloride 104, CO2 27, BUN 20, creatinine 1.20, glucose 109. INR 0.97, PTT 25.9, troponin 0.03. White blood cell count 11.3, again noted to have left shift with neutrophils 84.6%, hemoglobin 11.9, hematocrit 36, and platelet count 319,000. EKG shows atrial fibrillation with a rate of 69 and a right bundle branch block. There is ST depression in leads V4 to V6 and in lead II. This is consistent with previous EKGs. Previous EKG was from 06/30/16. Chest x-ray from today. Radiologist's impression: Cardiomegaly. No cardiopulmonary disease noted. Brain CT from today. Radiologist's impression. No CT evidence for intracranial hemorrhage or gross CT stigmata of ischemic stroke, advanced involutional change. IMPRESSION: Ms. Schroeder is an 87-year-old female with past medical history significant for atrial fibrillation, hypertension, hypothyroidism, dementia, depression, history of GI bleed, vertigo, and breast cancer, who presents to the emergency room with right lower extremity weakness and speech difficulties starting yesterday. She will be admitted as an inpatient for possible cerebrovascular accident. ASSESSMENT/PLAN: 1. Possible cerebrovascular accident. The patient's brain CT from today shows no acute intracranial hemorrhage or stroke. The patient will be monitored on telemetry. She will have neuro checks q. 2 hours. We will check a fasting lipid in the morning. We will also order an echocardiogram. We will get a PT/ OT and Speech Therapy evaluation. We will check a hemoglobin A1c. The patient will be continued on aspirin. The patient has had a neurological consult, and we will get a CTA of her head in addition to an MRI in the morning. For now, due to the patient having some difficulty swallowing, we will hold on her statin until she has a dysphagia screening and a Speech Therapy consultation. It is to note that the patient is not anticoagulated for her atrial fibrillation. 2. Hypertension. The patient's blood pressures have been relatively controlled while in the ER. We are going to hold her home medications to allow for permissive hypertension. She will have labetalol as needed for systolic blood pressure greater than 200 or a diastolic pressure greater than 105. 3. Elevated creatinine. I suspect the patient is at her baseline. We will give her a little gentle IV hydration overnight and see if this changes at all. 4. Elevated troponin. The patient's troponin in slightly elevated at 0.03. This appears to be at her baseline. She denies any chest pain. We will not continue to trend her troponins. 5. Hypothyroidism. We will check a TSH. We will continue her on her home levothyroxine. 6. Atrial fibrillation. The patient is not currently anticoagulated due to her history of peptic ulcer disease. We will resume her metoprolol tartrate ideally tomorrow after we have allowed for 24 hours of permissive hypertension. 7. Dysphagia. The patient had a barium swallow study on 03/13/17 showing a delayed passage of a 1.3 cm barium pill at the gastroesophageal junction. This is not a new problem for the patient, but I would like her to pass a dysphagia screening before she eats. We will also have speech therapy see her in consultation. 8. Fluids, electrolytes, and nutrition. N.p.o. until the patient is able to pass a dysphagia screening. Then we will resume her on a heart healthy diet if she is able to pass her swallow study. 9. Code status. DNR/DNI. A MOLST has been completed and placed on the chart. 10. DVT prophylaxis. The patient is at highest risk and will have subcutaneous heparin. 11. Disposition. Inpatient. TIME SPENT: Time for this admission was approximately 60 minutes, greater than half of that was spent with the patient doing a physical examination and attempting to discuss medications, past medical history, and events leading up to her arrival today, performing a physical examination and reviewing her chart. The case has been reviewed with the attending Dr. Perry, who agrees with the plan of care. RD JANG, DOOR WORKER [id number]/[facility] #: [id number] PRINCESS
[2017-03-16] MEDS ORDERED: CMCS: Melatonin (NF) 3 MG TAB PO PRN (23:15)
[2017-03-17] MEDS: Heparin VIAL(*) 5000 UNITS/ML VIAL (FIVE THOUSAND) SUBCUT SCH ×3 (05:44→21:10)
[2017-03-17] MEDS ORDERED: Pneumococcal *Vac Polyvalent 0.5 ML VIAL IM ONE (09:00)
[2017-03-17] MEDS: Aspirin EC Low Dose* 81 MG TAB.EC PO SCH (09:14)
[2017-03-17] MEDS: NS 0.9% 1000 ML* 1,000 ML IV SCH ×2 (09:16→11:09)
[2017-03-17 10:03] LABS: BUN/Creatinine Ratio 17.1 (8-20); Calcium 9.4 mg/dL (8.6-10.3); EGFR African American 63.5 (>60); EGFR Non-African American 49.3 (>60); Potassium 3.5 mmol/L (3.5-5.0)
--- NOTE | 2017-03-17 10:31 | PN ---
Subjective Date of Service: 03/17/17 Interval History: She offers no c/o. Not clear if she could make her needs known. Objective Active Medications: Aspirin (Aspirin Ec Low Dose*) 81 mg PO DAILY [facility] Last Admin: 03/17/17 09:14 Dose: 81 mg Heparin Sodium (Porcine) (Heparin Vial(*)) 5,000 units SUBCUT Q8HR [facility] Last Admin: 03/17/17 05:44 Dose: 5,000 units Sodium Chloride (Ns 0.9% 1000 Ml*) 1,000 mls @ 50 mls/hr IV PER RATE [facility] Labetalol HCl (Trandate Iv*) 10 mg IV PUSH Q20M PRN PRN Reason: BLOOD PRESSURE Vital Signs 03/16/17 03/16/17 03/16/17 12:00 14:00 15:39 Temperature 97.5 F 97.3 F Pulse Rate 78 84 118 Respiratory 16 20 20 Rate Blood Pressure 159/89 146/111 (mmHg) O2 Sat by Pulse 99 100 100 Oximetry 03/16/17 03/16/17 03/16/17 19:30 20:32 23:58 Temperature 97.6 F 97.0 F Pulse Rate 82 82 Respiratory 16 16 20 Rate Blood Pressure 156/88 153/83 (mmHg) O2 Sat by Pulse 100 100 Oximetry 03/17/17 03/17/17 03/17/17 03:28 07:20 08:02 Temperature 97.2 F 97.4 F Pulse Rate 99 111 Respiratory 16 16 22 Rate Blood Pressure 143/81 154/80 (mmHg) O2 Sat by Pulse 98 Oximetry Oxygen Devices in Use Now: None Appearance: Alert, partly up in bed. In good spirits. Looks comfortable. Neck: NL Appearance and Movements; NL JVP, No Thyroid Enlargement, Masses Respiratory: Symmetrical Chest Expansion and Respiratory Effort, Clear to Auscultation, Clear to Percussion Cardiovascular: No Edema, - - irreg Extremities: No Edema, No Clubbing, Cyanosis, - Skin: No Rash or Ulcers, No Nodules or Sclerosis, - Neurological: NL Sensation - Sparse speech. She can say her full name, could not guess her age, did not know she was in a hospital or where she lives. No tremor. ? R facial weakness. Handgrips both 4/5, able to raise both legs off the bed equally. Result Diagrams: 03/16/17 10:40 03/17/17 09:30 Additional Lab and Data: Lab Results 03/16/17 03/16/17 03/16/17 Range/Units 10:40 10:40 10:40 WBC 11.3 H (3.5-10.8) 10^3/ul RBC 4.20 (4.0-5.4) 10^6/ul Hgb 11.9 L (12.0-16.0) g/dl Hct 36 (35-47) % MCV 86 (80-97) fL MCH 28 (27-31) pg MCHC 33 (31-36) g/dl RDW 16 H (10.5-15) % Plt Count 319 (150-450) 10^3/ul MPV 10 (7.4-10.4) um3 Neut % (Auto) 84.6 H (38-83) % Lymph % (Auto) 5.7 L (25-47) % Christian % (Auto) 9.3 H (1-9) % Eos % (Auto) 0 (0-6) % Baso % (Auto) 0.4 (0-2) % Absolute Neuts (auto) 9.6 H (1.5-7.7) 10^3/ul Absolute Lymphs (auto) 0.6 L (1.0-4.8) 10^3/ul Absolute Monos (auto) 1.1 H (0-0.8) 10^3/ul Absolute Eos (auto) 0 (0-0.6) 10^3/ul Absolute Basos (auto) 0 (0-0.2) 10^3/ul Absolute Nucleated RBC 0 10^3/ul Nucleated RBC % 0 INR (Anticoag Therapy) 0.97 (0.89-1.11) APTT 25.9 L (26.0-36.3) seconds Sodium 137 (133-145) mmol/L Potassium 3.9 (3.5-5.0) mmol/L Chloride 104 (101-111) mmol/L Carbon Dioxide 27 (22-32) mmol/L Anion Gap 6 (2-11) mmol/L BUN 20 (6-24) mg/dL Creatinine 1.20 H (0.51-0.95) mg/dL Est GFR ( Amer) 54.4 (>60) Est GFR (Non-Af Amer) 42.3 (>60) BUN/Creatinine Ratio 16.7 (8-20) Glucose 109 H (70-100) mg/dL Lactic Acid (0.5-2.0) mmol/L Calcium 9.7 (8.6-10.3) mg/dL Total Bilirubin 1.10 H (0.2-1.0) mg/dL AST 21 (13-39) U/L ALT 13 (7-52) U/L Alkaline Phosphatase 89 (34-104) U/L Troponin I 0.03 (<0.04) ng/mL Total Protein 7.4 (6.4-8.9) g/dL Albumin 3.6 (3.2-5.2) g/dL Globulin 3.8 (2-4) g/dL Albumin/Globulin Ratio 0.9 L (1-3) Triglycerides 106 mg/dL Cholesterol 171 mg/dL LDL Cholesterol Pending HDL Cholesterol Pending Blood Type Antibody Screen 03/16/17 03/16/17 Range/Units 10:40 10:40 WBC (3.5-10.8) 10^3/ul RBC (4.0-5.4) 10^6/ul Hgb (12.0-16.0) g/dl Hct (35-47) % MCV (80-97) fL MCH (27-31) pg MCHC (31-36) g/dl RDW (10.5-15) % Plt Count (150-450) 10^3/ul MPV (7.4-10.4) um3 Neut % (Auto) (38-83) % Lymph % (Auto) (25-47) % Christian % (Auto) (1-9) % Eos % (Auto) (0-6) % Baso % (Auto) (0-2) % Absolute Neuts (auto) (1.5-7.7) 10^3/ul Absolute Lymphs (auto) (1.0-4.8) 10^3/ul Absolute Monos (auto) (0-0.8) 10^3/ul Absolute Eos (auto) (0-0.6) 10^3/ul Absolute Basos (auto) (0-0.2) 10^3/ul Absolute Nucleated RBC 10^3/ul Nucleated RBC % INR (Anticoag Therapy) (0.89-1.11) APTT (26.0-36.3) seconds Sodium (133-145) mmol/L Potassium (3.5-5.0) mmol/L Chloride (101-111) mmol/L Carbon Dioxide (22-32) mmol/L Anion Gap (2-11) mmol/L BUN (6-24) mg/dL Creatinine (0.51-0.95) mg/dL Est GFR ( Amer) (>60) Est GFR (Non-Af Amer) (>60) BUN/Creatinine Ratio (8-20) Glucose (70-100) mg/dL Lactic Acid 1.2 (0.5-2.0) mmol/L Calcium (8.6-10.3) mg/dL Total Bilirubin (0.2-1.0) mg/dL AST (13-39) U/L ALT (7-52) U/L Alkaline Phosphatase (34-104) U/L Troponin I (<0.04) ng/mL Total Protein (6.4-8.9) g/dL Albumin (3.2-5.2) g/dL Globulin (2-4) g/dL Albumin/Globulin Ratio (1-3) Triglycerides mg/dL Cholesterol mg/dL LDL Cholesterol HDL Cholesterol Blood Type A Positive Antibody Screen Pending Assess/Plan/Problems-Billing Assessment: - Patient Problems (1) CVA (cerebral vascular accident) Current Visit: Yes Status: Acute Code(s): I63.9 - CEREBRAL INFARCTION, UNSPECIFIED SNOMED Code(s): 965792073 Comment: vs TIA. MRI pending. PT eval pending. If ambulatory, consider discharge home. Discussed with Dr. Holder. Continue ASA. (2) Atrial fibrillation Current Visit: No Status: Acute Priority: Medium Code(s): I48.91 - UNSPECIFIED ATRIAL FIBRILLATION SNOMED Code(s): 85006619 Comment: Resume metoprolol at lower dose and observe on tele. - Not on AC due to prior GI bleed. Continue ASA. (3) Hypothyroidism Current Visit: No Status: Acute Priority: Medium Code(s): E03.9 - HYPOTHYROIDISM, UNSPECIFIED SNOMED Code(s): 38026940 Comment: TSH wnl 03/16/17. Continue Levothyroxine. (4) Dementia Current Visit: Yes Status: Acute Code(s): F03.90 - UNSPECIFIED DEMENTIA WITHOUT BEHAVIORAL DISTURBANCE SNOMED Code(s): 46664315 Comment: Relatively stable. Will discuss home care with her children when they are available.
[2017-03-17] MEDS: Metoprolol Tartrate TAB* 100 MG TAB PO SCH ×2 (11:06→20:34)
--- NOTE | 2017-03-17 11:43 | ECHO ---
Patient: KERRI MELGOZA [facility] Rec#: [id number] : 1930 Date: 03/17/2017 Age: 87y Height: 165.1 cm / 65.0 in Weight: 58.06 kg / 128.0 lbs Sex: F BSA: 1.64 Room#: [facility] Admit Date#: 03/16/2017 Type: Inpatient Referring: Neeta Pearson NP Reading: Mor Jerome MD Medicine Man: Mone Marie RDCS,RDMS CC: Keon Manzano DO Transthoracic Echocardiogram Indication: CVA BP: 143/81 HR: 88 Rhythm: A-Fib Findings History: AFIB, HTN, breast cancer, bilatera mastectomy Technical Comments: The study quality is fair. Left Ventricle: The left ventricular chamber size is normal. Moderate concentric left ventricular hypertrophy is observed. Global left ventricular wall motion and contractility are within normal limits. There is normal left ventricular systolic function. The estimated ejection fraction is 50-55%. The assessment of diastolic function is non-diagnostic. Left Atrium: The left atrium is severely dilated. Right Ventricle: The right ventricular chamber size and systolic function are within normal limits. Right Atrium: The right atrium is moderately dilated. A patent foramen ovale is not demonstrated with color Doppler and agitated contrast. Aortic Valve: The aortic valve is trileaflet. The aortic valve leaflets are mildly thickened. There is aortic annular calcification. There is a trace of aortic regurgitation. There is no evidence of aortic stenosis. Mitral Valve: There is mitral annular calcification. The mitral valve leaflets are mildly thickened. There is moderate mitral regurgitation. There is borderline mitral stenosis. Tricuspid Valve: The tricuspid valve leaflets are normal. There is mild tricuspid regurgitation. Pulmonic Valve: The pulmonic valve appears normal. There is a trace pulmonic regurgitation. Pericardium: There is no significant pericardial effusion. Aorta: The aortic root appears normal. There is no dilatation of the aortic arch. Pulmonary Artery: The main pulmonary artery appears normal. Venous: The inferior vena cava is dilated. There is less than 50% respiratory change in the inferior vena cava dimension. Contrast: Intravenous agitated saline contrast was used to assess intracardiac shunting. Summary: There are no significant changes when compared to the previous study done on 07/22/12 Conclusions Moderate concentric left ventricular hypertrophy is observed. Global left ventricular wall motion and contractility are within normal limits. There is normal left ventricular systolic function. The estimated ejection fraction is 50-55%. The left atrium is severely dilated. A patent foramen ovale is not demonstrated with color Doppler and agitated contrast. There is moderate mitral regurgitation. There is mild tricuspid regurgitation. There is no significant pericardial effusion. There are no significant changes when compared to the previous study done on 07/22/12 Measurements Name Value Normal Range RVIDd (AP) 2D 2.6 cm (0.9 - 2.6) RVDdMajor (2D) 2.6 cm (2.2 - 4.4) RAd ISD 4CH 5.7 cm (3.4 - 4.9) RA (A4C)W 3.2 cm (2.9 - 4.6) IVSd (2D) 1.4 cm (0.6 - 1) LVPWd (2D) 1.4 cm (0.6 - 1) LVIDd (2D) 3.8 cm (3.6 - 5.4) LVIDs (2D) 2.8 cm - LV FS (2D) 25 % (25 - 45) Aortic Annulus 2 cm (1.4 - 2.6) Ao root diameter (2D) 3.1 cm (2.1 - 3.5) Ascending Ao 3.2 cm (2.1 - 3.4) Aortic arch 3 cm (1.8 - 3.4) LA dimension (AP) 2D 4.7 cm (2.3 - 3.8) LAd ISD 4CH 5.5 cm (2.9 - 5.3) LA ISD 4CH W 5.3 cm (2.5 - 4.5) Name Value Normal Range LA ESV SP 4CH (A/L) 96.18 ml - LA ESV SP 2CH (A/L) 101.58 ml - LA ESV BP (A/L) 102.23 ml - LA ESV BP (A/L) index 62 ml/m2 - LA ESV SP 4CH (MOD) 86.03 ml - LA ESV SP 2CH (MOD) 94.18 ml - Name Value Normal Range MV E-wave Vmax 0.9 m/sec - MV deceleration time 164 msec - LV lateral e' Vmax 0.07 m/sec - LV E:e' lateral ratio 12.4 ratio - Name Value Normal Range AV Vmax 1.1 m/sec - AV peak gradient 5 mmHg - LVOT Vmax 0.7 m/sec - LVOT peak gradient 1.8 mmHg - AR PHT 547.86 msec - AR peak gradient 53.42 mmHg - Name Value Normal Range MV Vmax 1.1 m/sec - MV VTI 21.4 cm - MV peak gradient 5 mmHg - MV mean gradient 1.7 mmHg - MV PHT 58 msec - MVA (PHT) 3.8 cm2 - Name Value Normal Range TR Vmax 2.2 m/sec - TR peak gradient 19 mmHg - RAP 8 mmHg - RVSP 27 mmHg - IVC diameter 2.3 cm - Name Value Normal Range PV Vmax 0.9 m/sec - PV peak gradient 3.2 mmHg -
--- NOTE | 2017-03-17 15:41 | RAD ---
HISTORY: Dementia, right leg weakness COMPARISONS: October 27, 2015, head CT dated March 16, 2017 TECHNIQUE: The following sequences were obtained of the head: Sagittal T1-weighted images, axial FLAIR images, axial susceptibility weighted images. Additionally, axial diffusion-weighted images were obtained with calculated apparent diffusion coefficients. FINDINGS: The study is limited by motion. Additionally, the patient was unable to tolerate further imaging HEMORRHAGE/INFARCT: There are small areas of restricted diffusion along the superior frontal gyrus on the left posteriorly extending to the precentral gyrus. MASSES/SHIFT: There is no mass or shift. EXTRA-AXIAL SPACES/MENINGES: There are no extra-axial fluid collections. SULCI AND VENTRICLES: There is diffuse and proportional enlargement of the sulci and ventricles. CEREBRUM: There is elevated T2/FLAIR signal in the area of restricted diffusion of the left frontal lobe. BRAINSTEM: There are no focal parenchymal abnormalities. CEREBELLUM: There are no focal parenchymal abnormalities. The cerebellar tonsils are normal in size and position. SELLA: The sella is normal. PINEAL: The pineal region is clear. CP ANGLE/TEMPORAL BONES: The labyrinthine structures are grossly normal. VESSELS: Normal flow-voids are noted within the visualized vertebral vasculature. DIFFUSION ABNORMALITIES: As noted above, there is restricted diffusion within the left superior frontal gyrus extending to the precentral gyrus. PARANASAL SINUSES/MASTOIDS: The paranasal sinuses are clear. ORBITS: The orbits are unremarkable. BONES AND SOFT TISSUE: No bone or soft tissue abnormalities are noted. OTHER: None IMPRESSION: 1. LIMITED STUDY. 2. SMALL AREAS OF RESTRICTED DIFFUSION WITHIN THE LEFT FRONTAL GYRUS POSTERIORLY EXTENDING INTO THE PRECENTRAL GYRUS CONSISTENT WITH SUBACUTE NONHEMORRHAGIC INFARCT
--- NOTE | 2017-03-17 16:31 | PN ---
PROGRESS NOTE: DATE OF PROGRESS NOTE: 03/17/17 SUBJECTIVE: Overnight, the patient has not had any new issues. She was started on soft diet this morning, but the family reported a significant history of dysphagia in the recent past that predates her most current symptoms. She continues to have problems expressing herself and continues to have what appears to be an expressive aphasia. She does follow simple commands but is unable to communicate effectively. There had been no new reported episodes of weakness, loss of consciousness, worsening speech difficulties. She has otherwise been stable. OBJECTIVE: Vital Signs: Temperature is 97.4, pulse of 111, respiratory rate of 22, blood pressure 154/80, temperatures have been afebrile over the last 12 hours, pulse rate high of 118. Blood pressures have been 164/87 to 146/111. Respiratory rate has been in the 15s to 20s. O2 sats have been in the 96 to 100 range. In general, she is a well-nourished, well-developed female, sitting on her hospital bed. She is pleasant although confused. HEENT: She is normocephalic, atraumatic. Sclerae anicteric. Mucous membranes are moist. Oropharynx is clear. Denture is in place. Neck is supple. Chest: Clear to auscultation bilaterally. Regular rate and rhythm with occasional ectopic beats. Abdomen is nontender. Extremities: No clubbing, cyanosis, or edema. Neurologic Exam: She is awake, alert. She does respond to her name but is otherwise confused and disoriented. Cranial Nerves: Pupils are equal, round, and reactive to light. Extraocular muscles are intact. Visual sterling are full to confrontation. Face: She has a subtle right lower facial weakness. Hearing appears to be grossly intact. Tongue is midline. Palate elevate symmetrically. Motor Exam: It is difficult examination because she is noncompliant but in the upper extremities, on the left she is 5/5 proximally and distally, on the right 4+/5 proximally and distally. No drift. In the left leg, she is 5/5 and in the right leg, she is 5/5 proximally and distally with some mild drift downwards. DTRs are 3+ and symmetric in the upper and lower extremities. Babinski is equivocal. Sensation is intact to pain. She withdraws in light touch with difficult examination. [id number] was difficult. She could not fully understand. She did have her fingers bilaterally, appears to be intact. No tremors were noted. Gait was not tested. LABORATORY DATA: Lab work this morning, B12 of greater than 1450, folate of 14.19, TSH of 2.40, free T4 of 1.39. Hemoglobin A1c is 5/5. LDL cholesterol of 109. DIAGNOSTIC STUDIES: Studies done include brain CT as noted. Yesterday, head CTA was done, which showed no hemodynamically significant stenosis in the carotids and normal variation without hemodynamically significant intracranial stenosis or large vessel occlusion. Echocardiogram is pending. ASSESSMENT AND PLAN: Ms. Schroeder is an 87-year-old female who sustained a recent fall several weeks ago, was transferred to [place] and recovered well, also history of dementia, who developed sudden onset of speech difficulties and some right-sided weakness the day prior to admission, was brought in and CT of the head showed no acute changes. CTA shows no significant vessel disease but concern for a stroke likely left-sided is high given the presentation. The plan is as follows: 1. We will obtain the echocardiogram. 2. Continue aspirin. We will await the results of the MRI but consider statin. 3. Followup MRI. 4. NPO until evaluated by Speech Therapy. Physical Therapy has been ordered. 5. Permissive hypertension. Labetalol p.r.n. 6. Tightly controlled blood sugars. 7. History of dementia, now off medications due to side effects. We will follow this longer term but no changes to medications at this point. She is on DVT prophylaxis. I will continue to follow her and make further recommendations. [id number]/[facility] #: [id number] PRINCESS
[2017-03-17] MEDS ORDERED: CMCS: Melatonin (NF) 3 MG TAB PO SCH (23:00)
[2017-03-18] MEDS: Heparin VIAL(*) 5000 UNITS/ML VIAL (FIVE THOUSAND) SUBCUT SCH (05:50)
[2017-03-18] MEDS: Metoprolol Tartrate TAB* 100 MG TAB PO SCH (08:49)
[2017-03-18] MEDS: Aspirin EC Low Dose* 81 MG TAB.EC PO SCH (08:49)
[2017-03-18] MEDS: NS 0.9% 1000 ML* 1,000 ML IV SCH (10:56)
[2017-03-18 11:31] VITALS: BP 150/58
--- NOTE | 2017-03-18 13:45 | PN ---
PROGRESS NOTE: DATE OF SERVICE: 03/18/17 LOCATION: She is in room 449, bed 2. SUBJECTIVE: The patient was somewhat confused overnight, picking and trying to get out of the bed multiple times. Melatonin was ordered and the nurse this morning states that it did help her sleep some, although she is out at the nurses' station this morning because she does get very confused and tries to get up out of the bed. There have been no other new reported issues overnight, although this morning she is in atrial fibrillation. Appreciate Speech Therapy' s input. She is now on a soft diet. Continues to have significant memory issues which are chronic and longstanding. No new focal symptoms reported. No chest pain reported. She has otherwise been doing okay. OBJECTIVE: Vital Signs: Heart rate has ranged from 66 to 80, temperature is afebrile, 98.3, blood pressure 154/72 to 150/94 to 158/81, 99% sats, respiratory rate 16. General: Well-nourished, well-developed female, sitting in her hospital chair. She is quiet, but pleasant. HEENT: She is normocephalic, atraumatic. Sclerae anicteric. Mucous membranes are moist. Oropharynx is clear. Neck is supple. Chest: Clear to auscultation bilaterally. Cardiovascular: Irregularly irregular, no murmurs appreciated. Abdomen is nontender. Extremities: No clubbing, cyanosis, or edema. Neurologic Exam: She is awake, alert and oriented to person only. Speech is nonfluent with an expressive much greater than receptive aphasia, she is following simple commands. Cranial Nerves: Pupils are equally round and reactive to light. Her extraocular muscles are intact. Her visual sterling are full to confrontation. Slight right lower facial droop. Hearing appears to be grossly intact. Tongue is midline. Palate raises symmetrically. Motor Exam: She spontaneously moves all extremities, although there is poor effort and difficulty following commands. She is raising all of her extremities antigravity. There is no apparent drift. She appears to be generally weak all over. No focal weakness that I can appreciate on exam. Her tone is normal. DTRs are 3+ and symmetric in the upper and lower extremities with equivocal Babinski's and 1+ ankles. [id number] and rapid alternating movements were difficult to assess, but she has no resting tremor. Sensation: She withdraws to pain x4. Again, difficult to fully assess. Her gait was not tested at this time. LABORATORY DATA: No new labs this morning. DIAGNOSTIC STUDIES: 1. Brain MRI from 03/17/17; I did review the films. Limited study. Small area of restricted diffusion within the left frontal gyrus, posteriorly extending into the precentral gyrus consistent with a subacute hemorrhagic infarct. I agree with this finding. 2. Transthoracic echocardiogram. Moderate concentric left ventricular hypertrophy. Global left ventricular wall motion and contractility are within normal limits. Normal left ventricular systolic function. Estimated ejection fraction 50% to 55%. Left atrium is severely dilated. Patent foramen ovale is not demonstrated with color Doppler and agitated contrast. Moderate mitral regurg, moderate tricuspid regurg. There is no significant pericardial effusion. There are no significant changes when compared to the previous study on 07/22/12. ASSESSMENT AND PLAN: Ms. Schroeder is an 87-year-old female who suffers from moderate to advanced dementia, suffered a significant fall several weeks prior to admission, was transferred to [place], but workup reportedly negative per the family. She was sent home and was doing well when she developed worsening speech and some right- sided weakness, was brought to the hospital. MRI now confirms what we suspected, which is a left-sided stroke. She continues to suffer from an expressive greater than receptive aphasia. She is following some commands, but at times is unable to follow commands very well, but she is unable to communicate well. I suspect that this is partly related to her stroke , but also her underlying dementia is likely contributing as well. 1. From a stroke standpoint, I will continue her aspirin, blood pressure control, can titrate medications as necessary, watch for any diabetes. She does have atrial fibrillation, but given the fact that she fell several weeks ago and sustained a head trauma, I think that she is contraindicated for any stronger anticoagulation. Follow for diabetes although she has no history of it. Appreciate Speech Therapy's help. She is now on a soft diet. 2. I believe she is a good candidate for half-way rehab. I do not think she would be a good candidate for inpatient rehab secondary to the fact that she has significant dementia and would have a difficult time participating fully. 3. Some sundowning at night. Melatonin seems to have helped. I would continue this medication. 4. History of dementia. She was previously on medications, but was taken off when she was at [place] because she was having side effects and the family and treating physicians at that time felt that the benefit was minimal. I would continue her off these medications. Discharge planning in progress. Continue DVT prophylaxis. [id number]/[facility] #: [id number] PRINCESS
--- NOTE | 2017-03-19 08:18 | DS ---
DISCHARGE SUMMARY: DATE OF ADMISSION: 03/16/17 DATE OF DISCHARGE: 03/18/17 ADMITTING PROVIDER: Neeta Foss NP. PRIMARY CARE PHYSICIAN: Keon Manzano DO CHIEF COMPLAINT: Acute onset right-sided weakness and slurred speech. PRINCIPAL DIAGNOSIS: Acute cerebrovascular accident. HISTORY OF PRESENT ILLNESS AND HOSPITAL COURSE: Ms. Schroeder is an 87-year-old female with past medical history significant for AFib, not treatment with anticoagulation given history of gastric ulcers and GI bleed, hypertension, hypothyroidism, dementia, depression, presented to the emergency room on 03/16 with acute right lower extremity weakness and speech difficulties. Please see H and P for further details. The patient was noted to drag her right foot with walking and having had speech difficulty. These symptoms are observed her daughter, who is currently visiting her ever since she had a fall resulting in hospitalization in [place] 2 weeks prior to admission. She was hospitalized for 5 days. She also has 2 sons that live very close to her. She has been having outpatient workup for some difficulty swallowing with barium swallow study showing late passage on 03/13 as an outpatient. Patient had a CT scan in the emergency room, which showed no intracranial hemorrhage or CVA. Brain MRI from March 16 demonstrated small areas of restricted diffusion within the left frontal gyrus posteriorly extending into the precentral gyrus consistent with subacute nonhemorrhagic infarct, although study was limited by motion. The patient was evaluated by Neurology, Dr. Ismael Holder. Transthoracic echocardiogram was ordered, which showed moderate concentric left ventricular hypertrophy. EF of 50% to 55%, severe dilation of left atrium. No patent foramen ovale was demonstrated with color Doppler with agitated contrast, moderate mitral regurgitation, moderate tricuspid regurgitation. No significant changes compared to 07/22/12. Given history of atrial fibrillation , but a recent fall with head trauma, it was considered contraindicated for any stronger anticoagulation than aspirin. Disposition was discussed with family, who desired not to take the patient to a fci given experience with patient's . Patient's neurological status improved back to baseline with no significant right-sided leg weakness and no speech impairment and a slight right nasolabial fold droop. Patient's past medical history also includes dementia with orientation to self, but not time or location currently. HOME MEDICATIONS: 1. Aspirin 81 mg (new). 2. Calcium carbonate vitamin D half tab p.o. daily. 3. Cholecalciferol 5000 units p.o. daily. 4. Vitamin B12 tablet 2500 mcg p.o. daily. 5. Synthroid 50 mcg p.o. 8 a.m. 6. Lopressor 100 mg tab, 150 mg p.o. b.i.d. DISPOSITION: Home with [facility]. DIET: Soft texture. FOLLOWUP: Patient will need to be seen by primary care physician, Dr. Keon Manzano roughly within 3 to 5 days from discharge. DISCHARGE TIME: 35 minutes. [id number]/CPS #: [id number] MTDD
== END 2017-03-18 14:20 | disposition home or self-care (01) | DRG 65 ==
LOC: ED 09:56 → MEDTELE 11:41
PROVIDERS: ADMIT Internal Medicine; ATTEND Internal Medicine
PROC: 3E0234Z Introduction of Serum, Toxoid and Vaccine into Muscle, Percutaneous Approach (ICD-10-PCS; principal; 2017-03-17)
DX: I63.9 Cerebral infarction, unspecified (principal); F05 Delirium due to known physiological condition; G81.91 Hemiplegia, unspecified affecting right dominant side; I08.1 Rheumatic disorders of both mitral and tricuspid valves; F03.90 Unspecified dementia, unspecified severity, without behavioral disturbance, psychotic disturbance, mood disturbance, and anxiety; I48.91 Unspecified atrial fibrillation; R13.10 Dysphagia, unspecified; I10 Essential (primary) hypertension; R47.01 Aphasia; F32.9 Major depressive disorder, single episode, unspecified; I45.10 Unspecified right bundle-branch block; K21.9 Gastro-esophageal reflux disease without esophagitis; M19.90 Unspecified osteoarthritis, unspecified site; R40.2412 Glasgow coma scale score 13-15, at arrival to emergency department; R29.810 Facial weakness; E03.9 Hypothyroidism, unspecified; R74.8 Abnormal levels of other serum enzymes; Z66 Do not resuscitate; F41.0 Panic disorder [episodic paroxysmal anxiety]; Z90.13 Acquired absence of bilateral breasts and nipples; Z90.710 Acquired absence of both cervix and uterus; Z88.2 Allergy status to sulfonamides; Z88.8 Allergy status to other drugs, medicaments and biological substances; Z85.3 Personal history of malignant neoplasm of breast; Z23 Encounter for immunization; Z87.891 Personal history of nicotine dependence; Z79.82 Long term (current) use of aspirin
CPT/HCPCS: 36415; 70450; 70496; 70498; 70551; 71010; 74220; 80048; 80053; 80061; 81003; 82607; 82746; 83036; 83090; 83605; 84439; 84443; 84484; 85025; 85610; 85730; 86038; 86850; 86900; 86901; 90732; 93005; 93306; A9270-GY; J1644; Q9967

== ENCOUNTER 2017-03-24 22:04 | Inpatient (IN) | payer MEDICARE, BC ==
[2017-03-24 22:27] LABS: Hematocrit 37 % (35-47); Hemoglobin 12.1 g/dl (12.0-16.0); Mean Corpuscular HGB Conc 32 g/dl (31-36); Mean Corpuscular Hemoglobin 28 pg (27-31); Mean Corpuscular Volume 86 fL (80-97); Mean Platelet Volume 10 um3 (7.4-10.4); Red Blood Count 4.32 10^6/ul (4.0-5.4); Red Cell Distribution Width 16 % (10.5-15); White Blood Count 9.2 10^3/ul (3.5-10.8)
[2017-03-24 22:39] LABS: Albumin 3.3 g/dL (3.2-5.2); BUN/Creatinine Ratio 18.6 (8-20); Calcium 9.5 mg/dL (8.6-10.3); EGFR African American 58.3 (>60); EGFR Non-African American 45.3 (>60); Globulin 3.7 g/dL (2-4); Potassium 3.7 mmol/L (3.5-5.0); Total Bilirubin 0.4 mg/dL (0.2-1.0)
[2017-03-24 22:40] LABS: Troponin I 0.02 ng/mL (<0.04)
[2017-03-24] MEDS ORDERED: Iodixanol* (CONTRAST) 320 MG/ML 100 ML SDV IV ONE (23:42)
[2017-03-25] MEDS ORDERED: Iodixanol* (CONTRAST) 320 MG/ML 100 ML SDV IV ONE (00:29)
[2017-03-25] MEDS ORDERED: Aspirin SUPP* 300 MG PR ONE (00:42)
--- NOTE | 2017-03-25 01:37 | HP ---
H&P (Free Text) History and Physical: PCP: Ashley Manzano DO Date/Time: 03/25/2017 0105 CC: sudden R-sided weakness HPI: Mrs Schroeder is an 87YO female HX admission to [facility] 03/16/2017 for presumed CVA with R-sided weakness which resolved allowing her to be discharged neurologically intact. Tonight she went to bed at her usual time of 1900 and in her usual state of health. Over the next 45minutes her daughter who is staying with her noticed her needing to get up to urinate every 10minutes or so. Around 2044, her daughter heard a "thump" finding her on the floor next to her bed not responding. She called her brother who came and assisted them getting her back into bed allowing them to notice a significant R facial droop prompting this evaluation. Upon my arrival, Mrs Schroeder is unable to participate in this history due to a GCS of 6. PMedHx AFIB breast CA s/p B mastectomy upper GI bleed gastric ulcers hypothyroidism HTN dementia anemia vertigo depression Ambulatory Orders Nursing to reconcile. Levothyroxine TAB* [Synthroid 25 MCG TAB*] 50 mcg PO 0800 07/15/12 Calcium Carbonate-Vitamin D [Os-Ced 500 + D] 0.5 tab PO DAILY 04/19/16 Cholecalciferol [Vitamin D3] 5,000 unit PO DAILY 04/19/16 Cyanocobalamin TAB* [Vitamin B12 TAB*] 2,500 mcg PO DAILY 04/19/16 Aspirin EC Low Dose* [Ecotrin EC Low Dose 81 MG*] 81 mg PO DAILY #30 tab.ec Metoprolol Tartrate TAB* [Lopressor TAB*] 100 mg PO BID 03/24/17 Allergies Prednisone Allergy (Severe, Verified 04/24/16 14:45) Hallucinations Sulfa Antibiotics Allergy (Severe, Verified 04/24/16 14:45) Hives Diltiazem Allergy (Intermediate, Verified 04/24/16 14:45) Hives Memantine [From Namenda] Allergy (Unknown, Verified 04/24/16 14:45) Unknown Reaction Details Hydrochlorothiazide Allergy (Verified 03/16/17 18:30) Unknown Reaction Details PSurgHx B mastectomy hysterectomy SocHx: no tobacco, alcohol, or recreational drugs; lives with her son; DNR/I code status FamHx: unobtainable ROS: as above, otherwise reviewed and all were negative vitals: Vital Signs Temp 36.3 C 03/24/17 22:08 Pulse 74 03/24/17 22:08 Resp 16 03/24/17 22:08 BP 157/71 03/24/17 22:08 Pulse Ox 97 03/24/17 22:08 Intake & Output 03/24/17 03/24/17 03/25/17 11:59 23:59 11:59 Weight 54.431 kg Constitutional: NAD, normally developed, well-nourished elderly white female HEENM: atraumatic; sclera/conjunctiva: non-icteric/clear; hearing: unable to assess; oropharynx: clear, mucosa moist Neck: soft tissue: non-tender; thyroid: normal Pulmonary: clear to auscultation bilaterally, good aeration, no accessory muscle use CV: RR/RR, normal S1S2, no carotid bruit, no jugular venous distention, 2+ B DP/ PT, no edema Abdominal: soft, non-distended, non-tender, no rebound/guarding/rigidity, normoactive bowel sounds, no hepatosplenomegaly or masses, no costovertebral angle tenderness Musculoskeletal: general: grossly intact; gait: unable to stand or ambulate Integumental: small L frontal hematoma Neurological cranial nerves II: unable to assess visual sterling III/IV/: symmetric light reflex, unable to assess EOMI/PERRLA V: unable to assess corneal reflex, facial sensation, & mastication VII: R facial droop, weak eye clench R VIII: unable to assess hearing IX/X: unable to assess palatal motion, weak gag reflex, unable to assess for dysarthria XI: unable to assess shoulder shrug XII: unable to assess tongue protrusion or voice articulation motor LUE: 4-/5 proximally/distally, 2/5 control manager strength RUE: flaccid proximally, distally, & control manager strength LLE: 4-/5 proximally & distally RLE: 3/5 proximally & distally coordination finger/nose: unable to assess heal/blackman: unable to assess dysdiadochokinesia: unable to assess sensory crude touch: unable to assess pinprick: unable to assess vibration: unable to assess proprioception: unable to assess reflexes Babinski: upgoing B Psychiatric orientation: GCS 6 affect: obtunded mood: acquiescent eye contact: absent content: absent responses: purposeful withdrawal to pain insight: absent Testing: Lab Results 03/24/17 03/24/17 03/24/17 Range/Units 22:07 22:07 22:07 WBC 9.2 (3.5-10.8) 10^3/ul RBC 4.32 (4.0-5.4) 10^6/ul Hgb 12.1 (12.0-16.0) g/dl Hct 37 (35-47) % MCV 86 (80-97) fL MCH 28 (27-31) pg MCHC 32 (31-36) g/dl RDW 16 H (10.5-15) % Plt Count 265 (150-450) 10^3/ul MPV 10 (7.4-10.4) um3 Neut % (Auto) 77.4 (38-83) % Lymph % (Auto) 12.5 L (25-47) % [place] % (Auto) 7.6 (1-9) % Eos % (Auto) 1.6 (0-6) % Baso % (Auto) 0.9 (0-2) % Absolute Neuts (auto) 7.1 (1.5-7.7) 10^3/ul Absolute Lymphs (auto) 1.1 (1.0-4.8) 10^3/ul Absolute Monos (auto) 0.7 (0-0.8) 10^3/ul Absolute Eos (auto) 0.1 (0-0.6) 10^3/ul Absolute Basos (auto) 0.1 (0-0.2) 10^3/ul Absolute Nucleated RBC 0.01 10^3/ul Nucleated RBC % 0.2 PT Cancelled INR (Anticoag Therapy) Cancelled Sodium 136 (133-145) mmol/L Potassium 3.7 (3.5-5.0) mmol/L Chloride 104 (101-111) mmol/L Carbon Dioxide 24 (22-32) mmol/L Anion Gap 8 (2-11) mmol/L BUN 21 (6-24) mg/dL Creatinine 1.13 H (0.51-0.95) mg/dL Est GFR ( Amer) 58.3 (>60) Est GFR (Non-Af Amer) 45.3 (>60) BUN/Creatinine Ratio 18.6 (8-20) Glucose 101 H (70-100) mg/dL Lactic Acid (0.5-2.0) mmol/L Calcium 9.5 (8.6-10.3) mg/dL Total Bilirubin 0.40 (0.2-1.0) mg/dL AST 20 (13-39) U/L ALT 13 (7-52) U/L Alkaline Phosphatase 76 (34-104) U/L Troponin I 0.02 (<0.04) ng/mL Total Protein 7.0 (6.4-8.9) g/dL Albumin 3.3 (3.2-5.2) g/dL Globulin 3.7 (2-4) g/dL Albumin/Globulin Ratio 0.9 L (1-3) 03/24/17 03/24/17 Range/Units 22:07 23:12 WBC (3.5-10.8) 10^3/ul RBC (4.0-5.4) 10^6/ul Hgb (12.0-16.0) g/dl Hct (35-47) % MCV (80-97) fL MCH (27-31) pg MCHC (31-36) g/dl RDW (10.5-15) % Plt Count (150-450) 10^3/ul MPV (7.4-10.4) um3 Neut % (Auto) (38-83) % Lymph % (Auto) (25-47) % [place] % (Auto) (1-9) % Eos % (Auto) (0-6) % Baso % (Auto) (0-2) % Absolute Neuts (auto) (1.5-7.7) 10^3/ul Absolute Lymphs (auto) (1.0-4.8) 10^3/ul Absolute Monos (auto) (0-0.8) 10^3/ul Absolute Eos (auto) (0-0.6) 10^3/ul Absolute Basos (auto) (0-0.2) 10^3/ul Absolute Nucleated RBC 10^3/ul Nucleated RBC % PT INR (Anticoag Therapy) 0.93 Sodium (133-145) mmol/L Potassium (3.5-5.0) mmol/L Chloride (101-111) mmol/L Carbon Dioxide (22-32) mmol/L Anion Gap (2-11) mmol/L BUN (6-24) mg/dL Creatinine (0.51-0.95) mg/dL Est GFR ( Amer) (>60) Est GFR (Non-Af Amer) (>60) BUN/Creatinine Ratio (8-20) Glucose (70-100) mg/dL Lactic Acid 0.6 (0.5-2.0) mmol/L Calcium (8.6-10.3) mg/dL Total Bilirubin (0.2-1.0) mg/dL AST (13-39) U/L ALT (7-52) U/L Alkaline Phosphatase (34-104) U/L Troponin I (<0.04) ng/mL Total Protein (6.4-8.9) g/dL Albumin (3.2-5.2) g/dL Globulin (2-4) g/dL Albumin/Globulin Ratio (1-3) ECG, personally reviewed: AFIB rate 69, diffuse ST depressions unchanged from previous CT brain WO, personally reviewed: No acute brain parenchymal abnormality. No hemorrhage, mass, or acute territorial infarct. Atrophy and chronic small vessel ischemic changes. Minimal swelling right frontal scalp. Clear visualized paranasal sinuses. Visualized mastoid air cells clear. Impression: 87F presenting with sudden onset CVA w/ recent CVA 03/16 precluding her from tPA DIAGNOSIS & PLAN Primary CVA : telemetry : NPO : lipids up-to-date from 03/16/2017 : neurologic checks : PT/OT/ST evaluations : consult neurology in AM : supplemental oxgyen : aspirin AL : allow permissive HTN up to systolic 180 : supportive care Secondary AFIB : hold metoprolol for now to allow permissive HTN as above : not on anticoagulation 2nd HX GI bleed & recent fall/head injury : rate control PRN breast CA s/p B mastectomy : no evidence of disease gastric ulcers w/ upper GI bleed : IV famotidine BID hypothyroidism : continue levothyroxine IV at 50% PO dose HTN : monitor : hold metoprolol as above dementia : no acute issues anemia : stable Admission Rational: inpatient for CVA work up not anticipated to be complete w/ i 48h, will likely require SNF for rehab vs long-term placement DVTp: SCDs, no anticoagulation 2nd recent fall/head injury & HX gastric ulcers w / upper GI bleed on anticoagulation Code Status: DNR HCP: sonPopeye
[2017-03-25] MEDS ORDERED: Ondansetron INJ* 2 MG/ML VIAL IV PRN (02:08)
[2017-03-25] MEDS ORDERED: Acetaminophen SUPP* 650 MG SUPP PR PRN (02:08)
[2017-03-25] MEDS: NS 0.9% 1000 ML* 1,000 ML IV SCH ×2 (03:10→15:06)
[2017-03-25] MEDS ORDERED: Levothyroxine TAB* 50 MCG TAB PO SCH (06:00)
[2017-03-25 06:32] LABS: Urine Bilirubin Negative (Negative); Urine Glucose Negative (Negative); Urine Nitrite Negative (Negative)
--- NOTE | 2017-03-25 06:37 | RAD ---
INDICATION: Right-sided weakness in a nonverbal patient. COMPARISON: CT of the brain dated March 16, 2017 TECHNIQUE: Contiguous axial sections of the brain were obtained from the skull base to the vertex without contrast. FINDINGS: The ventricles, cisterns and sulci exhibit symmetrical involutional changes similar in appearance to the prior brain CT. There is moderate periventricular and subcortical white matter hypoattenuation, similar in appearance to the prior brain CT and most consistent with chronic microvascular disease. Otherwise the rico-white matter differentiation is adequately maintained and there is no sulcal effacement. No significant focal abnormality or mass effect is present. There is no evidence for intracranial hemorrhage. There is coarse atherosclerotic calcification of the left greater than right petrous carotid arteries. No significant focal osseous abnormality is present. The visualized portion of the paranasal sinuses and mastoid air cells appear clear. IMPRESSION: No CT apparent acute intracranial abnormality.
--- NOTE | 2017-03-25 06:52 | ED ---
Barbie Eng Nilda, scribed for Anthony Ramos MD on 03/24/17 at 2214 . Neurological HPI - HPI Summary HPI Summary: Pt is an 87 y.o F BIBA presenting to [facility] accompanied by family to rule out stroke. Per EMS, patient was conversing with her family when she began experiencing symptoms of R-sided facial droop, R-sided weakness, forced gaze, and AMS characterized as decreased responsiveness and nonverbal. She was last seen normal at 2044. She had symptoms of TIA last week. Per family, patient has no blood in stools and no recent falls. Level 5 caveat due to AMS. - History of Current Complaint Chief Complaint: EDNeurologicalDeficit Stated Complaint: STROKE Hx Obtained From: EMS Hx From Patient Unobtainable Due To: Altered Mental Status - Level 5 Caveat Onset/Duration: Still Present Timing: Sudden Onset Neurological Deficit Location: Generalized - R-sided weakness, Facial - R-sided facial droop Pain Intensity: 0 Character: Other: - decreased responsiveness and nonverbal Associated Signs and Symptoms: Positive: AMS, Impaired Speech - nonverbal - Additional Pertinent History Primary Care Physician: [id number] - Allergy/Home Medications Allergies/Adverse Reactions: Allergies Allergy/AdvReac Type Severity Reaction Status Date / Time Prednisone Allergy Severe Hallucinati Verified 04/24/16 14:45 ons Sulfa Antibiotics Allergy Severe Hives Verified 04/24/16 14:45 Diltiazem Allergy Intermediate Hives Verified 04/24/16 14:45 Memantine [From Namenda] Allergy Unknown Unknown Verified 04/24/16 14:45 Reaction Details Hydrochlorothiazide Allergy Unknown Verified 03/16/17 18:30 Reaction Details Home Medications: Home Medications Metoprolol Tartrate TAB* [Lopressor TAB*] 100 mg PO BID 03/24/17 [History Confirmed 03/24/17] PMH/Surg Hx/FS Hx/Imm Hx Endocrine/Hematology History: Reports: Hx Thyroid Disease, Hx Anemia Denies: Hx Diabetes Cardiovascular History: Reports: Hx Hypertension, Other Cardiovascular Problems/ Disorders - HX ARRYTHMIA Denies: Hx Congestive Heart Failure, Hx Pacemaker/ICD Respiratory History: Denies: Hx Asthma GI History: Reports: Hx Gastroesophageal Reflux Disease, Hx Gastrointestinal Bleed, Hx Ulcer - 3-5 years ago, none recent History: Denies: Hx Renal Disease Musculoskeletal History: Reports: Hx Arthritis Sensory History: Reports: Hx Cataracts - having surgery Denies: Hx Contacts or Glasses, Hx Hearing Aid Opthamlomology History: Reports: Hx Cataracts - having surgery Denies: Hx Contacts or Glasses Neurological History: Reports: Hx Dementia, Other Neuro Impairments/Disorders - dementia Psychiatric History: Reports: Hx Depression, Hx Panic Disorder - SON IS CONCERNED - Cancer History Cancer Type, Location and Year: BREAST CA - DX 15-20 YRS AGO - Surgical History Surgery Procedure, Year, and Place: HYSTERECTOMY ;. DOUBLE MASECTOMY ;. ANNA IN STOMACH FOR BLEEDING ULCER - [facility] ;. cataracts Hx Anesthesia Reactions: No Infectious Disease History: No Infectious Disease History: Reports: Hx Shingles Denies: History Other Infectious Disease, Traveled Outside the [place] in Last 30 Days - Family History Family History: No FHx of Malignant Hypothermia - Social History Alcohol Use: None Hx Substance Use: No Substance Use Type: Reports: None Hx Tobacco Use: Yes Smoking Status (MU): Former Smoker Review of Systems - ROS Summary Review of Systems Summary: Level 5 Caveat: decreased responsiveness and nonverbal Positive: Other - negative blood in stools Neurological: Other - R-sided facial droop, R-sided weakness, forced gaze, and AMS characterized as decreased responsiveness and nonverbal; negative falls All Other Systems Reviewed And Are Negative: No Physical Exam - Summary Physical Exam Summary: General: opens eyes to voice Skin: warm, color reflects adequate perfusion, dry Head: normal Eyes: EOMI, [place]LIN ENT: normal Neck: supple, nontender Respiratory: CTA, breath sounds present Cardiovascular: RRR Abdomen: soft, nontender Bowel: present Musculoskeletal: normal, strength/ROM intact Neurological: refer to NIH Triage Information Reviewed: Yes Vital Signs On Initial Exam: Initial Vitals Temp Pulse Resp BP Pulse Ox 97.4 F 74 16 157/71 97 03/24/17 22:08 03/24/17 22:08 03/24/17 22:08 03/24/17 22:08 03/24/17 22:08 Vital Signs Reviewed: Yes Diagnostics - Vital Signs Vital Signs Temp Pulse Resp BP Pulse Ox 03/24/17 22:08 97.4 F 74 16 157/71 97 - Laboratory Lab Results: Lab Results 03/24/17 03/24/17 03/24/17 Range/Units 22:07 22:07 22:07 WBC 9.2 (3.5-10.8) 10^3/ul RBC 4.32 (4.0-5.4) 10^6/ul Hgb 12.1 (12.0-16.0) g/dl Hct 37 (35-47) % MCV 86 (80-97) fL MCH 28 (27-31) pg MCHC 32 (31-36) g/dl RDW 16 H (10.5-15) % Plt Count 265 (150-450) 10^3/ul MPV 10 (7.4-10.4) um3 Neut % (Auto) 77.4 (38-83) % Lymph % (Auto) 12.5 L (25-47) % Edmunds % (Auto) 7.6 (1-9) % Eos % (Auto) 1.6 (0-6) % Baso % (Auto) 0.9 (0-2) % Absolute Neuts (auto) 7.1 (1.5-7.7) 10^3/ul Absolute Lymphs (auto) 1.1 (1.0-4.8) 10^3/ul Absolute Monos (auto) 0.7 (0-0.8) 10^3/ul Absolute Eos (auto) 0.1 (0-0.6) 10^3/ul Absolute Basos (auto) 0.1 (0-0.2) 10^3/ul Absolute Nucleated RBC 0.01 10^3/ul Nucleated RBC % 0.2 PT Cancelled INR (Anticoag Therapy) Cancelled Sodium 136 (133-145) mmol/L Potassium 3.7 (3.5-5.0) mmol/L Chloride 104 (101-111) mmol/L Carbon Dioxide 24 (22-32) mmol/L Anion Gap 8 (2-11) mmol/L BUN 21 (6-24) mg/dL Creatinine 1.13 H (0.51-0.95) mg/dL Est GFR ( Amer) 58.3 (>60) Est GFR (Non-Af Amer) 45.3 (>60) BUN/Creatinine Ratio 18.6 (8-20) Glucose 101 H (70-100) mg/dL Lactic Acid (0.5-2.0) mmol/L Calcium 9.5 (8.6-10.3) mg/dL Total Bilirubin 0.40 (0.2-1.0) mg/dL AST 20 (13-39) U/L ALT 13 (7-52) U/L Alkaline Phosphatase 76 (34-104) U/L Troponin I 0.02 (<0.04) ng/mL Total Protein 7.0 (6.4-8.9) g/dL Albumin 3.3 (3.2-5.2) g/dL Globulin 3.7 (2-4) g/dL Albumin/Globulin Ratio 0.9 L (1-3) 03/24/17 03/24/17 Range/Units 22:07 23:12 WBC (3.5-10.8) 10^3/ul RBC (4.0-5.4) 10^6/ul Hgb (12.0-16.0) g/dl Hct (35-47) % MCV (80-97) fL MCH (27-31) pg MCHC (31-36) g/dl RDW (10.5-15) % Plt Count (150-450) 10^3/ul MPV (7.4-10.4) um3 Neut % (Auto) (38-83) % Lymph % (Auto) (25-47) % Edmunds % (Auto) (1-9) % Eos % (Auto) (0-6) % Baso % (Auto) (0-2) % Absolute Neuts (auto) (1.5-7.7) 10^3/ul Absolute Lymphs (auto) (1.0-4.8) 10^3/ul Absolute Monos (auto) (0-0.8) 10^3/ul Absolute Eos (auto) (0-0.6) 10^3/ul Absolute Basos (auto) (0-0.2) 10^3/ul Absolute Nucleated RBC 10^3/ul Nucleated RBC % PT INR (Anticoag Therapy) 0.93 Sodium (133-145) mmol/L Potassium (3.5-5.0) mmol/L Chloride (101-111) mmol/L Carbon Dioxide (22-32) mmol/L Anion Gap (2-11) mmol/L BUN (6-24) mg/dL Creatinine (0.51-0.95) mg/dL Est GFR ( Amer) (>60) Est GFR (Non-Af Amer) (>60) BUN/Creatinine Ratio (8-20) Glucose (70-100) mg/dL Lactic Acid 0.6 (0.5-2.0) mmol/L Calcium (8.6-10.3) mg/dL Total Bilirubin (0.2-1.0) mg/dL AST (13-39) U/L ALT (7-52) U/L Alkaline Phosphatase (34-104) U/L Troponin I (<0.04) ng/mL Total Protein (6.4-8.9) g/dL Albumin (3.2-5.2) g/dL Globulin (2-4) g/dL Albumin/Globulin Ratio (1-3) Result Diagrams: 03/24/17 22:07 03/24/17 22:07 Lab Statement: Any lab studies that have been ordered have been reviewed, and results considered in the medical decision making process. - CT Brain CT Interpretation: Positive (See Comments) CT Interpretation Completed By: Radiologist - No acute brain abnormality. No hemorrhage, mass or acute territorial infarct. Atrophy and chronic small vessel ischemic changes. Minimal swelling right frontal scalp. Clear visualized paranasal sinuses. Visualized mastoid air cell clear. ED physician reviewed report and agrees. - EKG 2232 EKG Rhythm: Atrial Fibrillation - 69 bpm EKG Interpretation: RBBB NIH Scale - NIH Scale Level of Consciousness: Responds to Minor Stimulation Ask Patient the Month and His/Her Age: Neither Correct/Aphasic Ask Pt to Open/Close Eyes and Wire Drawer/Release Non-Paretic Hand: One Correctly Best Gaze (Only Horizontal Eye Movement): Forced Deviation Visual Field Testing: No Visual Loss Facial Paresis-Pt to Smile & Close Eyes or Grimace Symmetry: Complete Paralysis Motor Function - Right Arm: No Effort Against Bluford Motor Function - Left Arm: No Drift-Holds 10 Seconds Motor Function - Right Leg: No Effort Against Bluford Motor Function - Left Leg: Effort Against Bluford Limb Ataxia-Must be out of Proportion to Weakness Present: Present in Two Limbs Sensory (Use Pinprick to Test Arms/Legs/Trunk/Face): Pinprick Less on Affected Best Language (Describe Picture, Name Items): Mute/Global Aphasia Dysarthria (Read Several Words): Unintelligible or Mute Extinction and Inattention: Profound Carlitos-Inattention Total Score: 27 Re-Evaluation - Re-Evaluation First Eval Re-Evaluation Time: 22:30 Change: Unchanged Comment: Discussed with family who is now here. Course/Dx - Course Course Of Treatment: DISCUSSED WITH TERESA/DR CAMPOS; DUE TO RECENT CVA, NOT A TPA CANDIDATE. NO NEED TO TRANSFER TO [place] AT THIS TIME. GIVEN ASA [place] IN ED. ADMIT HOSPITALIST. Assessment/Plan: BP noted and advised to follow up with PCP. Medications reviewed. - Diagnoses Provider Diagnoses: CVA (cerebral vascular accident) - Physician Notifications Discussed Care Of Patient With: Morgan Campos Time Discussed With Above Provider: 22:53 Instructed by Provider To: Other - Recommend CTA. Patient is not t-PA candidate due to TIA last week. ED physician agrees. Discussed again at 0043: CTA not presently necessary since [place] services currently unavailable. Recommends to admit patient and give aspirin. ED Physician agrees. - Critical Care Time Critical Care Time: 30-74 min Discharge - Discharge Plan Condition: Stable Disposition: ADMITTED TO [facility] documentation as recorded by the Barbie roldan Nilda accurately reflects the service I personally performed and the decisions made by me, Anthony Ramos MD.
[2017-03-25] MEDS: Levothyroxine INJ* 100 MCG/5 ML VIAL IV SCH (07:21)
[2017-03-25] MEDS: Famotidine IV* 10 MG/ML 2 ML (20 mg) IV SLOW PU SCH (07:53)
[2017-03-25] MEDS: Aspirin SUPP* 300 MG PR SCH (07:53)
[2017-03-25 08:51] LABS: Hematocrit 38 % (35-47); Hemoglobin 12.3 g/dl (12.0-16.0); Mean Corpuscular HGB Conc 33 g/dl (31-36); Mean Corpuscular Hemoglobin 28 pg (27-31); Mean Corpuscular Volume 86 fL (80-97); Mean Platelet Volume 10 um3 (7.4-10.4); Red Blood Count 4.38 10^6/ul (4.0-5.4); Red Cell Distribution Width 15 % (10.5-15)
[2017-03-25] MEDS ORDERED: Aspirin EC Low Dose* 81 MG TAB.EC PO SCH (09:00)
--- NOTE | 2017-03-25 16:50 | RAD ---
INDICATION: TIA, CVA workup. COMPARISON: Comparison is made with a prior MRI of the brain from March 17, [address] of the brain from March 24, 2017. TECHNIQUE: Sagittal T1, axial T1, T2, susceptibility, FLAIR and diffusion weighted images were obtained. FINDINGS: The ventricles, cisterns and sulci are prominent consistent with diffuse atrophy. There is a large area of increased T2 signal intensity present in the left frontal, temporal and parietal lobes with restricted diffusion consistent with a large left middle cerebral artery infarct. There is mass effect with effacement of the sulci and slight compression of the left lateral ventricle. No midline shift is seen. No hemorrhage is present. The visualized portion of the paranasal sinuses and mastoid air cells appear clear. 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
--- NOTE | 2017-03-25 17:23 | PN ---
Subjective Date of Service: 03/25/17 Interval History: Seen with daughter at bedside. Pt does not wake to voice or sternal rub Objective Active Medications: Acetaminophen (Tylenol Supp*) 650 mg CA Q6H PRN PRN Reason: FEVER/PAIN Aspirin (Aspirin Supp*) 300 mg CA DAILY [facility] Last Admin: 03/25/17 07:53 Dose: 300 mg Famotidine (Pepcid Iv*) 20 mg IV SLOW PU Q24H [facility] Last Admin: 03/25/17 07:53 Dose: 20 mg Heparin Sodium (Porcine) (Heparin Vial(*)) 5,000 units SUBCUT Q8HR [facility] Sodium Chloride (Ns 0.9% 1000 Ml*) 1,000 mls @ 85 mls/hr IV PER RATE [facility] Last Admin: 03/25/17 15:06 Dose: 85 mls/hr Levothyroxine Sodium (Synthroid Inj*) 25 mcg IV 0600 [facility] Last Admin: 03/25/17 07:21 Dose: 25 mcg Ondansetron HCl (Zofran Inj*) 4 mg IV Q6H PRN PRN Reason: NAUSEA Vital Signs 03/25/17 03/25/17 03/25/17 01:40 02:00 02:13 Temperature 97.5 F 98.2 F Pulse Rate 93 Respiratory 22 22 Rate Blood Pressure 186/110 165/86 (mmHg) O2 Sat by Pulse 100 Oximetry 03/25/17 03/25/17 03/25/17 07:57 11:35 16:54 Temperature 96.7 F 98.9 F 99.2 F Pulse Rate 108 83 108 Respiratory 20 20 16 Rate Blood Pressure 153/97 157/109 186/143 (mmHg) O2 Sat by Pulse 97 98 98 Oximetry Oxygen Devices in Use Now: None Appearance: stated age, NAD Eyes: No Scleral Icterus Ears/Nose/Mouth/Throat: - - dry MM Neck: NL Appearance and Movements; NL JVP, Trachea Midline Respiratory: Symmetrical Chest Expansion and Respiratory Effort Cardiovascular: - - IRIR Abdominal: NL Sounds; No Tenderness; No Distention, No Hepatosplenomegaly Lymphatic: No Cervical Adenopathy Extremities: No Edema Neurological: - - AOx0, does not wake to name or sternal rub, left arms and leg without purpose, right facial droop Result Diagrams: 03/25/17 08:32 03/24/17 22:07 Additional Lab and Data: Lab Results 03/24/17 03/24/17 03/24/17 Range/Units 22:07 22:07 22:07 WBC 9.2 (3.5-10.8) 10^3/ul RBC 4.32 (4.0-5.4) 10^6/ul Hgb 12.1 (12.0-16.0) g/dl Hct 37 (35-47) % MCV 86 (80-97) fL MCH 28 (27-31) pg MCHC 32 (31-36) g/dl RDW 16 H (10.5-15) % Plt Count 265 (150-450) 10^3/ul MPV 10 (7.4-10.4) um3 Neut % (Auto) 77.4 (38-83) % Lymph % (Auto) 12.5 L (25-47) % [place] % (Auto) 7.6 (1-9) % Eos % (Auto) 1.6 (0-6) % Baso % (Auto) 0.9 (0-2) % Absolute Neuts (auto) 7.1 (1.5-7.7) 10^3/ul Absolute Lymphs (auto) 1.1 (1.0-4.8) 10^3/ul Absolute Monos (auto) 0.7 (0-0.8) 10^3/ul Absolute Eos (auto) 0.1 (0-0.6) 10^3/ul Absolute Basos (auto) 0.1 (0-0.2) 10^3/ul Absolute Nucleated RBC 0.01 10^3/ul Nucleated RBC % 0.2 PT Cancelled INR (Anticoag Therapy) Cancelled Sodium 136 (133-145) mmol/L Potassium 3.7 (3.5-5.0) mmol/L Chloride 104 (101-111) mmol/L Carbon Dioxide 24 (22-32) mmol/L Anion Gap 8 (2-11) mmol/L BUN 21 (6-24) mg/dL Creatinine 1.13 H (0.51-0.95) mg/dL Est GFR ( Amer) 58.3 (>60) Est GFR (Non-Af Amer) 45.3 (>60) BUN/Creatinine Ratio 18.6 (8-20) Glucose 101 H (70-100) mg/dL Lactic Acid (0.5-2.0) mmol/L Calcium 9.5 (8.6-10.3) mg/dL Total Bilirubin 0.40 (0.2-1.0) mg/dL AST 20 (13-39) U/L ALT 13 (7-52) U/L Alkaline Phosphatase 76 (34-104) U/L Troponin I 0.02 (<0.04) ng/mL Total Protein 7.0 (6.4-8.9) g/dL Albumin 3.3 (3.2-5.2) g/dL Globulin 3.7 (2-4) g/dL Albumin/Globulin Ratio 0.9 L (1-3) 03/24/17 03/24/17 Range/Units 22:07 23:12 WBC (3.5-10.8) 10^3/ul RBC (4.0-5.4) 10^6/ul Hgb (12.0-16.0) g/dl Hct (35-47) % MCV (80-97) fL MCH (27-31) pg MCHC (31-36) g/dl RDW (10.5-15) % Plt Count (150-450) 10^3/ul MPV (7.4-10.4) um3 Neut % (Auto) (38-83) % Lymph % (Auto) (25-47) % [place] % (Auto) (1-9) % Eos % (Auto) (0-6) % Baso % (Auto) (0-2) % Absolute Neuts (auto) (1.5-7.7) 10^3/ul Absolute Lymphs (auto) (1.0-4.8) 10^3/ul Absolute Monos (auto) (0-0.8) 10^3/ul Absolute Eos (auto) (0-0.6) 10^3/ul Absolute Basos (auto) (0-0.2) 10^3/ul Absolute Nucleated RBC 10^3/ul Nucleated RBC % PT INR (Anticoag Therapy) 0.93 Sodium (133-145) mmol/L Potassium (3.5-5.0) mmol/L Chloride (101-111) mmol/L Carbon Dioxide (22-32) mmol/L Anion Gap (2-11) mmol/L BUN (6-24) mg/dL Creatinine (0.51-0.95) mg/dL Est GFR ( Amer) (>60) Est GFR (Non-Af Amer) (>60) BUN/Creatinine Ratio (8-20) Glucose (70-100) mg/dL Lactic Acid 0.6 (0.5-2.0) mmol/L Calcium (8.6-10.3) mg/dL Total Bilirubin (0.2-1.0) mg/dL AST (13-39) U/L ALT (7-52) U/L Alkaline Phosphatase (34-104) U/L Troponin I (<0.04) ng/mL Total Protein (6.4-8.9) g/dL Albumin (3.2-5.2) g/dL Globulin (2-4) g/dL Albumin/Globulin Ratio (1-3) Assess/Plan/Problems-Billing Assessment: 87 yo F h/o afib off AC since 2011 after large life threatening GI bleedin in setting of duodenal ulcer with recent stay 03/16 for CVA now returning with large left MCA CVA - Patient Problems (1) CVA (cerebral vascular accident) Comment: 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 Palliative care c/s placed (2) Atrial fibrillation Comment: Resume metoprolol at 50mg BID (3) Dementia Comment: obtunded in setting of massive cva (4) DVT prophylaxis Comment: HSQ
[2017-03-25] MEDS ORDERED: Metoprolol Tartrate IV* 1 MG/ML 5 ML VIAL IV PRN (18:44)
[2017-03-25] MEDS: Metoprolol Tartrate TAB* 50 mg PO SCH (20:38)
[2017-03-25] MEDS ORDERED: Metoprolol Tartrate TAB* 100 MG TAB PO SCH (21:00)
[2017-03-25] MEDS ORDERED: hydrALAZINE IV* 20 MG/ML VIAL IV PRN (22:50)
--- NOTE | 2017-03-25 23:16 | CONS ---
CC: Dr. Manzano* NEUROLOGY CONSULTATION: DATE OF CONSULTATION: 03/25/17 LOCATION: She is an inpatient in room 437. REFERRING PROVIDER: Dr. Willett. CHIEF COMPLAINT: Right-sided weakness, unresponsiveness. HISTORY OF PRESENT ILLNESS: Chaya Schroeder is an 87-year-old right-handed woman who was at home with her daughter late last night. Her daughter heard her fall and went to found her unresponsive on the floor. She was brought into the emergency room where she had a right hemiparesis and was unresponsive. She had just been into the hospital just over a week ago with transient right-sided weakness and aphasia. It more or less resolved other than perhaps some worsened language deficits. An MRI of the brain revealed a very small left cortical infarct. She has chronic atrial fibrillation and because of recent falls and prior history of GI bleeding, she was not anticoagulated, but was discharged on aspirin therapy. PAST MEDICAL HISTORY: Notable for: 1. GI bleed in 2011 with discontinuation of anticoagulants. 2. Chronic atrial fibrillation. 3. Breast cancer with bilateral mastectomies. 4. Hypertension. 5. Dementia. 6. Hypothyroidism. MEDICATIONS: At the time of admission consist of: 1. Levothyroxine 50 mcg p.o. daily. 2. Vitamin D. 3. Vitamin B12 2500 mg p.o. daily. 4. Aspirin 81 mg p.o. daily. 5. Metoprolol 100 mg p.o. b.i.d. ALLERGIES: She is allergic to SULFA ANTIBIOTICS, which caused hives as well as DILTIAZEM. She developed hallucinations on PREDNISONE. REVIEW OF SYSTEMS: From her daughter is that she is unsteady on her feet and very forgetful. She had recently had an episode of unresponsiveness and was evaluated in [place] with a negative workup. Her daughter had moved in with her. She has a son who is living next door. There is no history of tobacco use or alcohol abuse. FAMILY HISTORY: Noncontributory. PHYSICAL EXAMINATION: She is an elderly woman lying in her hospital bed. Her temperature 99.2 axillary. Blood pressure most recently listed as 186/143, was 157/109 before that. Heart rate is irregular in the 90s. Pertinent irregular rhythm and I do not hear murmurs. Carotid pulses are present and I do not hear bruits either. Head is atraumatic. Neurologically, the right pupil is about 3 mm, reacting to 2 and the left pupil is about 6 mm and weakly reactive to light to about 5 mm. Gaze is deviated forcibly to the left. She has central pattern right facial weakness. She has Martinez-Miller respirations. She does not respond to nasal tickle on the right where she does on the left. She does not open her eyes either to command or to noxious stimuli. She yawns frequently. Motor exam reveals the right side to be more or less flaccid. She moves the left arm and leg semi-purposefully. She has bilateral Babinski signs. DIAGNOSTIC DATA/LABORATORY DATA: Includes a CT of the brain, which is fairly unremarkable other than atrophy. MRI of the brain is reviewed and reveals an extensive area of infarction involving almost the entire left hemisphere sparing the posterior cerebral artery territory. A CT angiogram from 03/16/17 did not reveal any significant carotid stenosis. Other laboratory data includes unremarkable CBC, unremarkable chemistry profile. INR late last night was 0.93. IMPRESSION: Severe left internal carotid distribution infarction. It is almost certainly cardioembolic given her fairly clean carotid arteries on CT angiogram only a week and a half ago. Her prognosis is really quite dismal. I discussed my impression with her daughter, Ginna, who is present. I also discussed my impression with Dr. Willett. Currently, she is DNR, which is appropriate and I think most likely she will end up in palliative care if she survives the night. [id number]/[facility] #: [id number] MTDD
[2017-03-26] MEDS: NS 0.9% 1000 ML* 1,000 ML IV SCH (04:28)
[2017-03-26] MEDS: Levothyroxine INJ* 100 MCG/5 ML VIAL IV SCH (05:53)
[2017-03-26] MEDS: Heparin VIAL(*) 5000 UNITS/ML VIAL (FIVE THOUSAND) SUBCUT SCH ×2 (05:53→14:49)
[2017-03-26] MEDS: Famotidine IV* 10 MG/ML 2 ML (20 mg) IV SLOW PU SCH (09:17)
[2017-03-26] MEDS: Metoprolol Tartrate TAB* 50 mg PO SCH (09:17)
[2017-03-26] MEDS: Aspirin SUPP* 300 MG PR SCH (09:17)
[2017-03-26] MEDS ORDERED: Morphine ORAL CONCENTRATE* 5 MG/0.25 ML ORAL.SYRIN SL PRN (09:59)
[2017-03-26] MEDS ORDERED: NS 0.9% 1000 ML* 1,000 ML IV SCH (11:46)
--- NOTE | 2017-03-26 12:02 | PN ---
Subjective Date of Service: 03/26/17 Interval History: Patient is unresponsive to voice or light touch. Objective Active Medications: Aspirin (Aspirin Supp*) 300 mg MI DAILY [facility] Last Admin: 03/26/17 09:17 Dose: 300 mg Heparin Sodium (Porcine) (Heparin Vial(*)) 5,000 units SUBCUT Q8HR [facility] Last Admin: 03/26/17 05:53 Dose: 5,000 units Sodium Chloride (Ns 0.9% 1000 Ml*) 1,000 mls @ 50 mls/hr IV PER RATE [facility] Levothyroxine Sodium (Synthroid Inj*) 25 mcg IV 0600 [facility] Last Admin: 03/26/17 05:53 Dose: 25 mcg Metoprolol Tartrate (Lopressor Tab*) 50 mg PO BID [facility] Last Admin: 03/26/17 09:17 Dose: Not Given Metoprolol Tartrate (Lopressor Iv*) 5 mg IV Q6H PRN PRN Reason: BLOOD PRESSURE Last Admin: 03/25/17 20:15 Dose: 5 mg Morphine Sulfate (Morphine Oral Concentrate*) 2.5 mg SL Q1HR PRN PRN Reason: PAIN Ondansetron HCl (Zofran Inj*) 4 mg IV Q6H PRN PRN Reason: NAUSEA Vital Signs 03/25/17 03/25/17 03/25/17 16:51 16:54 20:00 Temperature 99.2 F 99.2 F Pulse Rate 103 108 Respiratory 16 16 16 Rate Blood Pressure 219/60 186/143 (mmHg) O2 Sat by Pulse 95 98 Oximetry 03/25/17 03/25/17 03/26/17 20:01 22:20 00:04 Temperature 99.4 F 99.8 F Pulse Rate 75 108 106 Respiratory 16 24 Rate Blood Pressure 191/92 190/74 125/54 (mmHg) O2 Sat by Pulse 97 97 Oximetry 03/26/17 03/26/17 03/26/17 02:55 04:03 07:40 Temperature 98.2 F 99.4 F Pulse Rate 109 105 Respiratory 24 24 Rate Blood Pressure 159/72 146/95 (mmHg) O2 Sat by Pulse 97 96 99 Oximetry 03/26/17 08:00 Temperature Pulse Rate Respiratory 24 Rate Blood Pressure (mmHg) O2 Sat by Pulse Oximetry Oxygen Devices in Use Now: Nasal Cannula Appearance: Head partly up in bed, eyes closed, not moving. Looks comfortable. Respiratory: Symmetrical Chest Expansion and Respiratory Effort, Clear to Auscultation, Clear to Percussion Cardiovascular: NL Sounds; No Murmurs; No JVD, RRR, No Edema, - Extremities: No Edema, No Clubbing, Cyanosis, - Skin: No Rash or Ulcers, No Nodules or Sclerosis, - Neurological: - - Patient is unresponsive to voice or light touch. Result Diagrams: 03/25/17 08:32 03/24/17 22:07 Additional Lab and Data: Lab Results 03/24/17 03/24/17 03/24/17 Range/Units 22:07 22:07 22:07 WBC 9.2 (3.5-10.8) 10^3/ul RBC 4.32 (4.0-5.4) 10^6/ul Hgb 12.1 (12.0-16.0) g/dl Hct 37 (35-47) % MCV 86 (80-97) fL MCH 28 (27-31) pg MCHC 32 (31-36) g/dl RDW 16 H (10.5-15) % Plt Count 265 (150-450) 10^3/ul MPV 10 (7.4-10.4) um3 Neut % (Auto) 77.4 (38-83) % Lymph % (Auto) 12.5 L (25-47) % [place] % (Auto) 7.6 (1-9) % Eos % (Auto) 1.6 (0-6) % Baso % (Auto) 0.9 (0-2) % Absolute Neuts (auto) 7.1 (1.5-7.7) 10^3/ul Absolute Lymphs (auto) 1.1 (1.0-4.8) 10^3/ul Absolute Monos (auto) 0.7 (0-0.8) 10^3/ul Absolute Eos (auto) 0.1 (0-0.6) 10^3/ul Absolute Basos (auto) 0.1 (0-0.2) 10^3/ul Absolute Nucleated RBC 0.01 10^3/ul Nucleated RBC % 0.2 PT Cancelled INR (Anticoag Therapy) Cancelled Sodium 136 (133-145) mmol/L Potassium 3.7 (3.5-5.0) mmol/L Chloride 104 (101-111) mmol/L Carbon Dioxide 24 (22-32) mmol/L Anion Gap 8 (2-11) mmol/L BUN 21 (6-24) mg/dL Creatinine 1.13 H (0.51-0.95) mg/dL Est GFR ( Amer) 58.3 (>60) Est GFR (Non-Af Amer) 45.3 (>60) BUN/Creatinine Ratio 18.6 (8-20) Glucose 101 H (70-100) mg/dL Lactic Acid (0.5-2.0) mmol/L Calcium 9.5 (8.6-10.3) mg/dL Total Bilirubin 0.40 (0.2-1.0) mg/dL AST 20 (13-39) U/L ALT 13 (7-52) U/L Alkaline Phosphatase 76 (34-104) U/L Troponin I 0.02 (<0.04) ng/mL Total Protein 7.0 (6.4-8.9) g/dL Albumin 3.3 (3.2-5.2) g/dL Globulin 3.7 (2-4) g/dL Albumin/Globulin Ratio 0.9 L (1-3) 03/24/17 03/24/17 Range/Units 22:07 23:12 WBC (3.5-10.8) 10^3/ul RBC (4.0-5.4) 10^6/ul Hgb (12.0-16.0) g/dl Hct (35-47) % MCV (80-97) fL MCH (27-31) pg MCHC (31-36) g/dl RDW (10.5-15) % Plt Count (150-450) 10^3/ul MPV (7.4-10.4) um3 Neut % (Auto) (38-83) % Lymph % (Auto) (25-47) % [place] % (Auto) (1-9) % Eos % (Auto) (0-6) % Baso % (Auto) (0-2) % Absolute Neuts (auto) (1.5-7.7) 10^3/ul Absolute Lymphs (auto) (1.0-4.8) 10^3/ul Absolute Monos (auto) (0-0.8) 10^3/ul Absolute Eos (auto) (0-0.6) 10^3/ul Absolute Basos (auto) (0-0.2) 10^3/ul Absolute Nucleated RBC 10^3/ul Nucleated RBC % PT INR (Anticoag Therapy) 0.93 Sodium (133-145) mmol/L Potassium (3.5-5.0) mmol/L Chloride (101-111) mmol/L Carbon Dioxide (22-32) mmol/L Anion Gap (2-11) mmol/L BUN (6-24) mg/dL Creatinine (0.51-0.95) mg/dL Est GFR ( Amer) (>60) Est GFR (Non-Af Amer) (>60) BUN/Creatinine Ratio (8-20) Glucose (70-100) mg/dL Lactic Acid 0.6 (0.5-2.0) mmol/L Calcium (8.6-10.3) mg/dL Total Bilirubin (0.2-1.0) mg/dL AST (13-39) U/L ALT (7-52) U/L Alkaline Phosphatase (34-104) U/L Troponin I (<0.04) ng/mL Total Protein (6.4-8.9) g/dL Albumin (3.2-5.2) g/dL Globulin (2-4) g/dL Albumin/Globulin Ratio (1-3) Assess/Plan/Problems-Billing Assessment: 87 yo F h/o afib off AC since 2011 after large life threatening GI bleedin in setting of duodenal ulcer with recent stay 03/16 for CVA now returning with large left MCA CVA - Patient Problems (1) CVA (cerebral vascular accident) Current Visit: Yes Status: Acute Code(s): I63.9 - CEREBRAL INFARCTION, UNSPECIFIED SNOMED Code(s): 921435844 Comment: Large CVA - likely embolic Poor prognosis I will meet with all of the patient's children 03/26 PM. Palliative care c/s placed (2) Hypothyroidism Current Visit: No Status: Acute Priority: Medium Code(s): E03.9 - HYPOTHYROIDISM, UNSPECIFIED SNOMED Code(s): 61868119 Comment: TSH wnl 03/16/17. Stop levothyroxine when patient on comfort measures.
--- NOTE | 2017-03-26 16:33 | PN ---
NEUROLOGY FOLLOWUP NOTE: DATE OF FOLLOWUP: 03/26/17 LOCATION: She is an inpatient in room 437. HOSPITALIST: Dr. Muse. CHIEF COMPLAINT: Stroke. INTERVAL HISTORY: Since yesterday, Ms. Schroeder remains unresponsive. She failed her swallowing test. She is DNR and awaiting a palliative care consultation. MEDICATIONS: Reviewed and she is on aspirin rectally 300 mg per day, metoprolol as needed for blood pressure spikes, morphine sulfate 2.5 mg sublingual q.1 hour as needed for pain. PHYSICAL EXAMINATION: Temperature most recently 99.6 axillary, blood pressure 159/97, heart rate 100 and irregular. Respirations are periodic, but she does not have apnea. Neurologically, she is unresponsive with her eyes closed. She has intermittent twitching movements of the left arm and leg. Pupils remain unequal with the left being about 4 mm, reacting to 3 and the right being about 3, reacting to 2. Eyes remain deviated to the left. She has a nasal tickle response on the left, but not the right. She has central pattern right facial weakness. She yawns, but does not attempt to phonate. She is unresponsive to loud voice and gentle shaking. She did not move her right arm or leg. There is stiffness of the right leg with passive manipulation. There is some twitching of the left arm and leg, but no purposeful movement. She has bilateral Babinski signs. DIAGNOSTIC DATA/LABORATORY DATA: Includes a CBC with hemoglobin of 12.3 today, chemistry is notable for creatinine 1.13 and otherwise fairly unremarkable. IMPRESSION: Large left middle cerebral artery, possibly internal carotid artery stroke. Most likely mechanism is cardioembolic. Anticoagulants are not safe in this setting. Prognosis is very poor and comfort care is the appropriate option if acceptable to the family. [id number]/[facility] #: [id number] MTDD
[2017-03-26] MEDS ORDERED: Atropine 1% (ORAL/SL)* 15 ML BTL SL PRN (16:58)
--- NOTE | 2017-03-26 21:01 | CONS ---
NEUROLOGY FOLLOWUP NOTE: DATE OF FOLLOWUP: 03/26/17 HOSPITALIST: Dr. Muse. BRIEF NOTE: I spoke with Chaya Schroeder's 3 sons and a daughter. I explained that she has had a large stroke involving the left side of her brain. I told them that prognostically, there is a good chance she would not survive unless we provided aggressive care. I told them with aggressive care, she might survive, but would be very unlikely to ever ambulate again. She would also have major communication problems. I answered as many questions as they had available for me. [id number]/[facility] #: [id number] PRINCESS
--- NOTE | 2017-03-27 | CONS ---
CC: Keon Manzano DO; Claude Willett MD* PALLIATIVE CARE CONSULTATION: DATE OF CONSULT: 03/26/17 REFERRING PHYSICIAN: Claude Willett MD PRIMARY CARE PHYSICIAN: Keon Manzano DO HOSPITAL COURSE: This is an 87-year-old female with a past medical history of a recent subacute stroke who was discharged on 03/18/17 back home, started on a baby aspirin in the setting of chronic atrial fibrillation due to her history of a GI bleed and also a high fall risk. The patient unfortunately returned to the emergency room on the evening of 03/24/17 with right-sided weakness and unresponsiveness. Over the past month and a half, her health has declined and her daughter has been staying with her. She noted that she had been needing to get up to urinate every 10 minutes and went to use the bathroom and they heard a thump and they found her on the floor next to her bed unresponsive. When they tried to get her back up on the bed, they noticed a significant right facial droop and minimally responsive. On arrival, her GCS score was 6. Due to the patient's recent CVA, she was not a candidate for TPA. She was admitted , n.p.o. and Neurology was consulted. Her head CT on admission showed no acute intracranial abnormality. The MRI done on 03/25/17 showed large non- hemorrhagic left middle cerebral artery territory infarct. The patient remained unresponsive, not awaking, not verbalizing, no spontaneous movements really witnessed at all on my encounter. I met with the daughter discussing her dismal prognosis and the opportunity to have hospice involved should they pursue that route. I also spoke with the healthcare proxy, Popeye, regarding her dismal prognosis and the opportunities for hospice and comfort care measures and they were making a decision late in the afternoon and were not ready to make any decision at this time. As mentioned on my encounter, the patient is unresponsive to verbal or tactile stimuli, unable to obtain a review of systems. PAST MEDICAL HISTORY: 1. As mentioned, recent infarct, discharged on 03/16/17, on a baby aspirin. 2. History of atrial fibrillation. 3. History of breast cancer, status post mastectomy. 4. History of upper GI bleed. 5. Gastric ulcer. 6. Hypothyroidism. 7. Hypertension. 8. Dementia. 9. Anemia. 10. Vertigo. 11. Depression. MEDICATIONS: 1. Atropine 2 drops sublingual q.2 hours. 2. Lorazepam 1 mg sublingual q.4 hours as needed. 3. Morphine 5 mg q.30 hours as needed. ALLERGIES: PREDNISONE, SULFA, DILTIAZEM, NAMENDA, HYDROCHLOROTHIAZIDE. SOCIAL HISTORY: As mentioned, the patient has been living alone independent of her ADLs. She did have her daughter come in and stay with her recently after her recent stroke 2 weeks ago. Code status is a DNR, trial of intubation. No history of tobacco, alcohol or illicit drug use. Her healthcare proxy is her son, Popeye. FAMILY HISTORY: Unknown. REVIEW OF SYSTEMS: Unable to obtain due to the patient's altered mental status. PHYSICAL EXAMINATION: Vitals: Temp 99.4, pulse rate 116, respiratory rate 18, oxygen saturation 96% on room air, blood pressure 195/106. General: As mentioned, no acute distress, unresponsive to verbal or tactile stimuli. HEENT : Head normocephalic. Pupils, right pupil 2 mm, sluggish; left pupil, 2 mm, nonreactive. Oropharynx: Mucous membranes are moist. Neck: Supple. Cardiac: Irregularly irregular rate and rhythm. Respiratory: Diminished breath sounds with intermittent Martinez-Miller breathing. Abdomen: Soft, nontender, nondistended. Extremities: No clubbing, cyanosis or edema. Neurologic: No gross spontaneous movements. The patient is unresponsive. ASSESSMENT: This is an 87-year-old female with past medical history of atrial fibrillation with a recent stroke 2 weeks ago, who presents with a large left middle cerebral artery non-hemorrhagic infarct, now unresponsive and not waking up. The family is planning to meet with neurologist this afternoon to talk about prognosis. I did speak with the son over the phone and the daughter in the room regarding my concern that she will not wake up and if she does not, she will not be able any oral intake and that if she does not wake up, her life expectancy is less that two weeks and that she is eligible for hospice and discussed potential opportunities for disposition with hospice. The family did not want to make any decisions until they met later this afternoon. We will follow up with our palliative care team regarding the decisions that were made after this meeting. Thank you for this consultation. We will follow along with you. PATIENT TIME: Greater than 60 minutes were spent doing the consultation, more than half that time was spent in direct patient contact. [id number]/[facility] #: [id number] [facility]
[2017-03-27] MEDS: LORazepam TAB(*) 1 MG SL PRN (13:10)
[2017-03-27] MEDS: Morphine ORAL CONCENTRATE* 5 MG/0.25 ML ORAL.SYRIN SL PRN (13:10)
--- NOTE | 2017-03-27 13:48 | PN ---
Subjective Date of Service: 03/27/17 Interval History: Patient unresponsive to voice or light touch. Objective Active Medications: Atropine Sulfate (Atropine 1% (Oral/Sl)*) 2 drop SL Q2H PRN PRN Reason: DISCOMFORT Last Admin: 03/27/17 13:11 Dose: 2 drop Lorazepam (Ativan Tab(*)) 1 mg SL Q4H PRN PRN Reason: ANXIETY Last Admin: 03/27/17 13:10 Dose: 1 mg Morphine Sulfate (Morphine Oral Concentrate*) 5 mg SL Q30M PRN PRN Reason: PAIN Last Admin: 03/27/17 13:10 Dose: 5 mg Vital Signs 03/26/17 03/26/17 03/27/17 15:07 20:00 08:00 Temperature 99.4 F Pulse Rate 116 Respiratory 18 22 22 Rate Blood Pressure 195/106 (mmHg) O2 Sat by Pulse 96 Oximetry 03/27/17 13:10 Temperature Pulse Rate Respiratory 18 Rate Blood Pressure (mmHg) O2 Sat by Pulse Oximetry Oxygen Devices in Use Now: Nasal Cannula Appearance: Head partly up in bed, eyes closed. Occ coughs. Moves L arm occ, not purposely. Extremities: No Edema, No Clubbing, Cyanosis, - Skin: No Rash or Ulcers, No Nodules or Sclerosis, - Neurological: - - Patient unresponsive to voice or light touch. L arm movements not purposeful. Result Diagrams: 03/25/17 08:32 03/24/17 22:07 Additional Lab and Data: Lab Results 03/24/17 03/24/17 03/24/17 Range/Units 22:07 22:07 22:07 WBC 9.2 (3.5-10.8) 10^3/ul RBC 4.32 (4.0-5.4) 10^6/ul Hgb 12.1 (12.0-16.0) g/dl Hct 37 (35-47) % MCV 86 (80-97) fL MCH 28 (27-31) pg MCHC 32 (31-36) g/dl RDW 16 H (10.5-15) % Plt Count 265 (150-450) 10^3/ul MPV 10 (7.4-10.4) um3 Neut % (Auto) 77.4 (38-83) % Lymph % (Auto) 12.5 L (25-47) % Martin % (Auto) 7.6 (1-9) % Eos % (Auto) 1.6 (0-6) % Baso % (Auto) 0.9 (0-2) % Absolute Neuts (auto) 7.1 (1.5-7.7) 10^3/ul Absolute Lymphs (auto) 1.1 (1.0-4.8) 10^3/ul Absolute Monos (auto) 0.7 (0-0.8) 10^3/ul Absolute Eos (auto) 0.1 (0-0.6) 10^3/ul Absolute Basos (auto) 0.1 (0-0.2) 10^3/ul Absolute Nucleated RBC 0.01 10^3/ul Nucleated RBC % 0.2 PT Cancelled INR (Anticoag Therapy) Cancelled Sodium 136 (133-145) mmol/L Potassium 3.7 (3.5-5.0) mmol/L Chloride 104 (101-111) mmol/L Carbon Dioxide 24 (22-32) mmol/L Anion Gap 8 (2-11) mmol/L BUN 21 (6-24) mg/dL Creatinine 1.13 H (0.51-0.95) mg/dL Est GFR ( Amer) 58.3 (>60) Est GFR (Non-Af Amer) 45.3 (>60) BUN/Creatinine Ratio 18.6 (8-20) Glucose 101 H (70-100) mg/dL Lactic Acid (0.5-2.0) mmol/L Calcium 9.5 (8.6-10.3) mg/dL Total Bilirubin 0.40 (0.2-1.0) mg/dL AST 20 (13-39) U/L ALT 13 (7-52) U/L Alkaline Phosphatase 76 (34-104) U/L Troponin I 0.02 (<0.04) ng/mL Total Protein 7.0 (6.4-8.9) g/dL Albumin 3.3 (3.2-5.2) g/dL Globulin 3.7 (2-4) g/dL Albumin/Globulin Ratio 0.9 L (1-3) 03/24/17 03/24/17 Range/Units 22:07 23:12 WBC (3.5-10.8) 10^3/ul RBC (4.0-5.4) 10^6/ul Hgb (12.0-16.0) g/dl Hct (35-47) % MCV (80-97) fL MCH (27-31) pg MCHC (31-36) g/dl RDW (10.5-15) % Plt Count (150-450) 10^3/ul MPV (7.4-10.4) um3 Neut % (Auto) (38-83) % Lymph % (Auto) (25-47) % Martin % (Auto) (1-9) % Eos % (Auto) (0-6) % Baso % (Auto) (0-2) % Absolute Neuts (auto) (1.5-7.7) 10^3/ul Absolute Lymphs (auto) (1.0-4.8) 10^3/ul Absolute Monos (auto) (0-0.8) 10^3/ul Absolute Eos (auto) (0-0.6) 10^3/ul Absolute Basos (auto) (0-0.2) 10^3/ul Absolute Nucleated RBC 10^3/ul Nucleated RBC % PT INR (Anticoag Therapy) 0.93 Sodium (133-145) mmol/L Potassium (3.5-5.0) mmol/L Chloride (101-111) mmol/L Carbon Dioxide (22-32) mmol/L Anion Gap (2-11) mmol/L BUN (6-24) mg/dL Creatinine (0.51-0.95) mg/dL Est GFR ( Amer) (>60) Est GFR (Non-Af Amer) (>60) BUN/Creatinine Ratio (8-20) Glucose (70-100) mg/dL Lactic Acid 0.6 (0.5-2.0) mmol/L Calcium (8.6-10.3) mg/dL Total Bilirubin (0.2-1.0) mg/dL AST (13-39) U/L ALT (7-52) U/L Alkaline Phosphatase (34-104) U/L Troponin I (<0.04) ng/mL Total Protein (6.4-8.9) g/dL Albumin (3.2-5.2) g/dL Globulin (2-4) g/dL Albumin/Globulin Ratio (1-3) Assess/Plan/Problems-Billing Assessment: 87 yo F h/o afib off AC since 2011 after large life threatening GI bleedin in setting of duodenal ulcer with recent stay 03/16 for CVA 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 They agreed on comfort care only measures. Palliative care c/s placed (2) Hypothyroidism Current Visit: No Status: Acute Priority: Medium Code(s): E03.9 - HYPOTHYROIDISM, UNSPECIFIED SNOMED Code(s): 85976465 Comment: TSH wnl 03/16/17. Stop levothyroxine when patient on comfort measures.
[2017-03-28] MEDS: LORazepam TAB(*) 1 MG SL PRN (04:42)
[2017-03-28] MEDS: Morphine ORAL CONCENTRATE* 5 MG/0.25 ML ORAL.SYRIN SL PRN (04:43)
--- NOTE | 2017-03-28 09:08 | PN ---
Progress Note - Progress Note Date of Service: 03/28/17 Note: I was asked to meet with this patient's daughter who was interested in prognosis to help decide whether to arrange for hospice services at home or keep the patient in the hospital. The patient has had a major MCA CVA and is not responsive, has had no p.o. intake for 4 days but was maintained on IV fluids until yesterday. She is currently on comfort care only and her MOLST needs to be updated to reflect this desire, as it currently has Part E specifying more interventions (feeding tube trials, etc.) but patient's legal HCP, her son Popeye, is not going to be here until this afternoon. I advised the patient's daughter to ask her brother to complete a new MOLST when he arrives to reflect their desire for comfort measures. The patient's Medicare coverage has not yet been terminated, and the daughter hopes that the patient can remain here in the hospital and not be moved. The patient seems in NAD, is breathing quietly, has irregularly irregular heart rate, and has no need for skilled care at this time and so is not eligible for GIP status. I estimate she will survive for another 7 to 10 days because her hydration has been maintained until yesterday. I discussed this with the daughter, suggesting hospice at home or a move to [facility] residence which has abed available, and she expects to take her mother home on ([facility]) hospice services early next week after receiving a notice of termination of Medicare coverage.
--- NOTE | 2017-03-28 18:17 | PN ---
Subjective Date of Service: 03/28/17 Interval History: Pt comfortable throughout day, not needing prns since 4-5am. MOLST form signed over phone with Son Popeye. Objective Active Medications: Atropine Sulfate (Atropine 1% (Oral/Sl)*) 2 drop SL Q2H PRN PRN Reason: DISCOMFORT Last Admin: 03/27/17 13:11 Dose: 2 drop Lorazepam (Ativan Tab(*)) 1 mg SL Q4H PRN PRN Reason: ANXIETY Last Admin: 03/28/17 04:42 Dose: 1 mg Morphine Sulfate (Morphine Oral Concentrate*) 5 mg SL Q30M PRN PRN Reason: PAIN Last Admin: 03/28/17 04:43 Dose: 5 mg Vital Signs 03/27/17 03/27/17 03/27/17 19:39 19:40 20:00 Temperature 99.6 F Pulse Rate 107 107 Respiratory 24 24 Rate Blood Pressure 155/88 155/88 (mmHg) O2 Sat by Pulse 97 97 Oximetry 03/28/17 03/28/17 03/28/17 04:42 04:43 08:00 Temperature Pulse Rate Respiratory 20 20 20 Rate Blood Pressure (mmHg) O2 Sat by Pulse Oximetry 03/28/17 08:16 Temperature 98.6 F Pulse Rate 109 Respiratory 20 Rate Blood Pressure 171/77 (mmHg) O2 Sat by Pulse 97 Oximetry Oxygen Devices in Use Now: None Appearance: chronically ill appearing but comfortable. Neck: Trachea Midline Respiratory: Symmetrical Chest Expansion and Respiratory Effort, Clear to Auscultation Cardiovascular: - - Irregularly irregular, regular rate Abdominal: NL Sounds; No Tenderness; No Distention Extremities: No Edema Skin: No Rash or Ulcers Neurological: - - Previously GCS6, eyes shut. Not responsive to gentle stimulation. Result Diagrams: 03/25/17 08:32 03/24/17 22:07 Additional Lab and Data: Lab Results 03/24/17 03/24/17 03/24/17 Range/Units 22:07 22:07 22:07 WBC 9.2 (3.5-10.8) 10^3/ul RBC 4.32 (4.0-5.4) 10^6/ul Hgb 12.1 (12.0-16.0) g/dl Hct 37 (35-47) % MCV 86 (80-97) fL MCH 28 (27-31) pg MCHC 32 (31-36) g/dl RDW 16 H (10.5-15) % Plt Count 265 (150-450) 10^3/ul MPV 10 (7.4-10.4) um3 Neut % (Auto) 77.4 (38-83) % Lymph % (Auto) 12.5 L (25-47) % Sch[place] % (Auto) 7.6 (1-9) % Eos % (Auto) 1.6 (0-6) % Baso % (Auto) 0.9 (0-2) % Absolute Neuts (auto) 7.1 (1.5-7.7) 10^3/ul Absolute Lymphs (auto) 1.1 (1.0-4.8) 10^3/ul Absolute Monos (auto) 0.7 (0-0.8) 10^3/ul Absolute Eos (auto) 0.1 (0-0.6) 10^3/ul Absolute Basos (auto) 0.1 (0-0.2) 10^3/ul Absolute Nucleated RBC 0.01 10^3/ul Nucleated RBC % 0.2 PT Cancelled INR (Anticoag Therapy) Cancelled Sodium 136 (133-145) mmol/L Potassium 3.7 (3.5-5.0) mmol/L Chloride 104 (101-111) mmol/L Carbon Dioxide 24 (22-32) mmol/L Anion Gap 8 (2-11) mmol/L BUN 21 (6-24) mg/dL Creatinine 1.13 H (0.51-0.95) mg/dL Est GFR ( Amer) 58.3 (>60) Est GFR (Non-Af Amer) 45.3 (>60) BUN/Creatinine Ratio 18.6 (8-20) Glucose 101 H (70-100) mg/dL Lactic Acid (0.5-2.0) mmol/L Calcium 9.5 (8.6-10.3) mg/dL Total Bilirubin 0.40 (0.2-1.0) mg/dL AST 20 (13-39) U/L ALT 13 (7-52) U/L Alkaline Phosphatase 76 (34-104) U/L Troponin I 0.02 (<0.04) ng/mL Total Protein 7.0 (6.4-8.9) g/dL Albumin 3.3 (3.2-5.2) g/dL Globulin 3.7 (2-4) g/dL Albumin/Globulin Ratio 0.9 L (1-3) 03/24/17 03/24/17 Range/Units 22:07 23:12 WBC (3.5-10.8) 10^3/ul RBC (4.0-5.4) 10^6/ul Hgb (12.0-16.0) g/dl Hct (35-47) % MCV (80-97) fL MCH (27-31) pg MCHC (31-36) g/dl RDW (10.5-15) % Plt Count (150-450) 10^3/ul MPV (7.4-10.4) um3 Neut % (Auto) (38-83) % Lymph % (Auto) (25-47) % Schley % (Auto) (1-9) % Eos % (Auto) (0-6) % Baso % (Auto) (0-2) % Absolute Neuts (auto) (1.5-7.7) 10^3/ul Absolute Lymphs (auto) (1.0-4.8) 10^3/ul Absolute Monos (auto) (0-0.8) 10^3/ul Absolute Eos (auto) (0-0.6) 10^3/ul Absolute Basos (auto) (0-0.2) 10^3/ul Absolute Nucleated RBC 10^3/ul Nucleated RBC % PT INR (Anticoag Therapy) 0.93 Sodium (133-145) mmol/L Potassium (3.5-5.0) mmol/L Chloride (101-111) mmol/L Carbon Dioxide (22-32) mmol/L Anion Gap (2-11) mmol/L BUN (6-24) mg/dL Creatinine (0.51-0.95) mg/dL Est GFR ( Amer) (>60) Est GFR (Non-Af Amer) (>60) BUN/Creatinine Ratio (8-20) Glucose (70-100) mg/dL Lactic Acid 0.6 (0.5-2.0) mmol/L Calcium (8.6-10.3) mg/dL Total Bilirubin (0.2-1.0) mg/dL AST (13-39) U/L ALT (7-52) U/L Alkaline Phosphatase (34-104) U/L Troponin I (<0.04) ng/mL Total Protein (6.4-8.9) g/dL Albumin (3.2-5.2) g/dL Globulin (2-4) g/dL Albumin/Globulin Ratio (1-3) Assess/Plan/Problems-Billing Assessment: 87 yo F h/o afib off AC since 2011 after large life threatening GI bleeding in setting of duodenal ulcer with recent stay 03/16 for CVA 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 Comfort Care - Patient Problems (1) CVA (cerebral vascular accident) Current Visit: Yes Status: Acute Code(s): I63.9 - CEREBRAL INFARCTION, UNSPECIFIED SNOMED Code(s): 408261055 Comment: Large CVA - likely embolic Now comfort care only measures, likely transition to home in coming days. appreciate Palliative care c/s (2) Atrial fibrillation Current Visit: Yes Status: Acute Priority: Medium Code(s): I48.91 - UNSPECIFIED ATRIAL FIBRILLATION SNOMED Code(s): 46953054 Comment: no meds, comfort care only (3) Dementia Current Visit: Yes Status: Acute Code(s): F03.90 - UNSPECIFIED DEMENTIA WITHOUT BEHAVIORAL DISTURBANCE SNOMED Code(s): 22688996 Comment: obtunded in setting of massive cva (4) Need for comfort care Current Visit: Yes Status: Acute Code(s): XRQ5572 - SNOMED Code(s): 885408201 Comment: prn morphine and ativan. Comfortable appearing even with minimal prns. Attending: Sadiq Howard
--- NOTE | 2017-03-29 16:54 | PN ---
Subjective Date of Service: 03/29/17 Interval History: Some coughing this AM, unable to bring up secretions on own so suctioned. Otherwise comfortable appearing and no prns needed. Objective Active Medications: Atropine Sulfate (Atropine 1% (Oral/Sl)*) 2 drop SL Q2H PRN PRN Reason: DISCOMFORT Last Admin: 03/27/17 13:11 Dose: 2 drop Lorazepam (Ativan Tab(*)) 1 mg SL Q4H PRN PRN Reason: ANXIETY Last Admin: 03/28/17 04:42 Dose: 1 mg Morphine Sulfate (Morphine Oral Concentrate*) 5 mg SL Q30M PRN PRN Reason: PAIN Last Admin: 03/28/17 04:43 Dose: 5 mg Vital Signs 03/28/17 03/29/17 20:00 08:00 Respiratory 18 16 Rate Oxygen Devices in Use Now: None Appearance: moving left hand to stimulation. not opening eyes. Respiratory: Symmetrical Chest Expansion and Respiratory Effort, Clear to Auscultation Cardiovascular: - - irregularly irregular, tachycardic. no murmurs rubs or gallops. Skin: No Rash or Ulcers Neurological: - - GCS 6-7. Lines/Tubes/Other Access: Clean, Dry and Intact [place] Result Diagrams: 03/25/17 08:32 03/24/17 22:07 Additional Lab and Data: Lab Results 03/24/17 03/24/17 03/24/17 Range/Units 22:07 22:07 22:07 WBC 9.2 (3.5-10.8) 10^3/ul RBC 4.32 (4.0-5.4) 10^6/ul Hgb 12.1 (12.0-16.0) g/dl Hct 37 (35-47) % MCV 86 (80-97) fL MCH 28 (27-31) pg MCHC 32 (31-36) g/dl RDW 16 H (10.5-15) % Plt Count 265 (150-450) 10^3/ul MPV 10 (7.4-10.4) um3 Neut % (Auto) 77.4 (38-83) % Lymph % (Auto) 12.5 L (25-47) % Boyle % (Auto) 7.6 (1-9) % Eos % (Auto) 1.6 (0-6) % Baso % (Auto) 0.9 (0-2) % Absolute Neuts (auto) 7.1 (1.5-7.7) 10^3/ul Absolute Lymphs (auto) 1.1 (1.0-4.8) 10^3/ul Absolute Monos (auto) 0.7 (0-0.8) 10^3/ul Absolute Eos (auto) 0.1 (0-0.6) 10^3/ul Absolute Basos (auto) 0.1 (0-0.2) 10^3/ul Absolute Nucleated RBC 0.01 10^3/ul Nucleated RBC % 0.2 PT Cancelled INR (Anticoag Therapy) Cancelled Sodium 136 (133-145) mmol/L Potassium 3.7 (3.5-5.0) mmol/L Chloride 104 (101-111) mmol/L Carbon Dioxide 24 (22-32) mmol/L Anion Gap 8 (2-11) mmol/L BUN 21 (6-24) mg/dL Creatinine 1.13 H (0.51-0.95) mg/dL Est GFR ( Amer) 58.3 (>60) Est GFR (Non-Af Amer) 45.3 (>60) BUN/Creatinine Ratio 18.6 (8-20) Glucose 101 H (70-100) mg/dL Lactic Acid (0.5-2.0) mmol/L Calcium 9.5 (8.6-10.3) mg/dL Total Bilirubin 0.40 (0.2-1.0) mg/dL AST 20 (13-39) U/L ALT 13 (7-52) U/L Alkaline Phosphatase 76 (34-104) U/L Troponin I 0.02 (<0.04) ng/mL Total Protein 7.0 (6.4-8.9) g/dL Albumin 3.3 (3.2-5.2) g/dL Globulin 3.7 (2-4) g/dL Albumin/Globulin Ratio 0.9 L (1-3) 03/24/17 03/24/17 Range/Units 22:07 23:12 WBC (3.5-10.8) 10^3/ul RBC (4.0-5.4) 10^6/ul Hgb (12.0-16.0) g/dl Hct (35-47) % MCV (80-97) fL MCH (27-31) pg MCHC (31-36) g/dl RDW (10.5-15) % Plt Count (150-450) 10^3/ul MPV (7.4-10.4) um3 Neut % (Auto) (38-83) % Lymph % (Auto) (25-47) % Boy[place] % (Auto) (1-9) % Eos % (Auto) (0-6) % Baso % (Auto) (0-2) % Absolute Neuts (auto) (1.5-7.7) 10^3/ul Absolute Lymphs (auto) (1.0-4.8) 10^3/ul Absolute Monos (auto) (0-0.8) 10^3/ul Absolute Eos (auto) (0-0.6) 10^3/ul Absolute Basos (auto) (0-0.2) 10^3/ul Absolute Nucleated RBC 10^3/ul Nucleated RBC % PT INR (Anticoag Therapy) 0.93 Sodium (133-145) mmol/L Potassium (3.5-5.0) mmol/L Chloride (101-111) mmol/L Carbon Dioxide (22-32) mmol/L Anion Gap (2-11) mmol/L BUN (6-24) mg/dL Creatinine (0.51-0.95) mg/dL Est GFR ( Amer) (>60) Est GFR (Non-Af Amer) (>60) BUN/Creatinine Ratio (8-20) Glucose (70-100) mg/dL Lactic Acid 0.6 (0.5-2.0) mmol/L Calcium (8.6-10.3) mg/dL Total Bilirubin (0.2-1.0) mg/dL AST (13-39) U/L ALT (7-52) U/L Alkaline Phosphatase (34-104) U/L Troponin I (<0.04) ng/mL Total Protein (6.4-8.9) g/dL Albumin (3.2-5.2) g/dL Globulin (2-4) g/dL Albumin/Globulin Ratio (1-3) Assess/Plan/Problems-Billing Assessment: 87 yo F h/o afib off AC since 2011 after large life threatening GI bleeding in setting of duodenal ulcer with recent stay 03/16 for CVA 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 Comfort Care awaiting likely home going after potential appeal. - Patient Problems (1) CVA (cerebral vascular accident) Current Visit: Yes Status: Acute Code(s): I63.9 - CEREBRAL INFARCTION, UNSPECIFIED SNOMED Code(s): 124282267 Comment: Large CVA - likely embolic Now comfort care only measures, likely transition to home in coming days. appreciate Palliative care c/s (2) Atrial fibrillation Current Visit: Yes Status: Acute Priority: Medium Code(s): I48.91 - UNSPECIFIED ATRIAL FIBRILLATION SNOMED Code(s): 98195910 Comment: no meds, comfort care only (3) Dementia Current Visit: Yes Status: Acute Code(s): F03.90 - UNSPECIFIED DEMENTIA WITHOUT BEHAVIORAL DISTURBANCE SNOMED Code(s): 89238845 Comment: obtunded in setting of massive cva (4) Need for comfort care Current Visit: Yes Status: Acute Code(s): SJP9654 - SNOMED Code(s): 655487303 Comment: prn morphine and ativan. Comfortable appearing even with minimal prns. Status and Disposition: medicine inpatient. comfort care, stable for d/c to home but potential appeal by family Attending: Sadiq Howard
--- NOTE | 2017-03-30 09:53 | PN ---
Subjective Date of Service: 03/30/17 Interval History: required no prns. some coughing at 6pm last night. Met with family. Objective Active Medications: Atropine Sulfate (Atropine 1% (Oral/Sl)*) 2 drop SL Q2H PRN PRN Reason: DISCOMFORT Last Admin: 03/27/17 13:11 Dose: 2 drop Lorazepam (Ativan Tab(*)) 1 mg SL Q4H PRN PRN Reason: ANXIETY Last Admin: 03/28/17 04:42 Dose: 1 mg Morphine Sulfate (Morphine Oral Concentrate*) 5 mg SL Q30M PRN PRN Reason: PAIN Last Admin: 03/28/17 04:43 Dose: 5 mg Scopolamine (Transderm-Scop 1.5 Mg Patch*) 1 patch TRANSDERM Q72H SURYA Vital Signs 03/29/17 03/30/17 20:00 07:20 Respiratory 18 24 Rate Oxygen Devices in Use Now: None Appearance: GCS 6, seems peaceful. Eyes: No Scleral Icterus, PERRLA - does not spontaneously open eyes. , - Ears/Nose/Mouth/Throat: NL Teeth, Lips, Gums, Mucous Membranes Moist Neck: NL Appearance and Movements; NL JVP, Trachea Midline Respiratory: Symmetrical Chest Expansion and Respiratory Effort, Clear to Auscultation Cardiovascular: NL Sounds; No Murmurs; No JVD, - - irregularly irreguls Extremities: No Edema Skin: No Rash or Ulcers Neurological: - - GCS 6 Result Diagrams: 03/25/17 08:32 03/24/17 22:07 Additional Lab and Data: Lab Results 03/24/17 03/24/17 03/24/17 Range/Units 22:07 22:07 22:07 WBC 9.2 (3.5-10.8) 10^3/ul RBC 4.32 (4.0-5.4) 10^6/ul Hgb 12.1 (12.0-16.0) g/dl Hct 37 (35-47) % MCV 86 (80-97) fL MCH 28 (27-31) pg MCHC 32 (31-36) g/dl RDW 16 H (10.5-15) % Plt Count 265 (150-450) 10^3/ul MPV 10 (7.4-10.4) um3 Neut % (Auto) 77.4 (38-83) % Lymph % (Auto) 12.5 L (25-47) % [place] % (Auto) 7.6 (1-9) % Eos % (Auto) 1.6 (0-6) % Baso % (Auto) 0.9 (0-2) % Absolute Neuts (auto) 7.1 (1.5-7.7) 10^3/ul Absolute Lymphs (auto) 1.1 (1.0-4.8) 10^3/ul Absolute Monos (auto) 0.7 (0-0.8) 10^3/ul Absolute Eos (auto) 0.1 (0-0.6) 10^3/ul Absolute Basos (auto) 0.1 (0-0.2) 10^3/ul Absolute Nucleated RBC 0.01 10^3/ul Nucleated RBC % 0.2 PT Cancelled INR (Anticoag Therapy) Cancelled Sodium 136 (133-145) mmol/L Potassium 3.7 (3.5-5.0) mmol/L Chloride 104 (101-111) mmol/L Carbon Dioxide 24 (22-32) mmol/L Anion Gap 8 (2-11) mmol/L BUN 21 (6-24) mg/dL Creatinine 1.13 H (0.51-0.95) mg/dL Est GFR ( Amer) 58.3 (>60) Est GFR (Non-Af Amer) 45.3 (>60) BUN/Creatinine Ratio 18.6 (8-20) Glucose 101 H (70-100) mg/dL Lactic Acid (0.5-2.0) mmol/L Calcium 9.5 (8.6-10.3) mg/dL Total Bilirubin 0.40 (0.2-1.0) mg/dL AST 20 (13-39) U/L ALT 13 (7-52) U/L Alkaline Phosphatase 76 (34-104) U/L Troponin I 0.02 (<0.04) ng/mL Total Protein 7.0 (6.4-8.9) g/dL Albumin 3.3 (3.2-5.2) g/dL Globulin 3.7 (2-4) g/dL Albumin/Globulin Ratio 0.9 L (1-3) 03/24/17 03/24/17 Range/Units 22:07 23:12 WBC (3.5-10.8) 10^3/ul RBC (4.0-5.4) 10^6/ul Hgb (12.0-16.0) g/dl Hct (35-47) % MCV (80-97) fL MCH (27-31) pg MCHC (31-36) g/dl RDW (10.5-15) % Plt Count (150-450) 10^3/ul MPV (7.4-10.4) um3 Neut % (Auto) (38-83) % Lymph % (Auto) (25-47) % [place] % (Auto) (1-9) % Eos % (Auto) (0-6) % Baso % (Auto) (0-2) % Absolute Neuts (auto) (1.5-7.7) 10^3/ul Absolute Lymphs (auto) (1.0-4.8) 10^3/ul Absolute Monos (auto) (0-0.8) 10^3/ul Absolute Eos (auto) (0-0.6) 10^3/ul Absolute Basos (auto) (0-0.2) 10^3/ul Absolute Nucleated RBC 10^3/ul Nucleated RBC % PT INR (Anticoag Therapy) 0.93 Sodium (133-145) mmol/L Potassium (3.5-5.0) mmol/L Chloride (101-111) mmol/L Carbon Dioxide (22-32) mmol/L Anion Gap (2-11) mmol/L BUN (6-24) mg/dL Creatinine (0.51-0.95) mg/dL Est GFR ( Amer) (>60) Est GFR (Non-Af Amer) (>60) BUN/Creatinine Ratio (8-20) Glucose (70-100) mg/dL Lactic Acid 0.6 (0.5-2.0) mmol/L Calcium (8.6-10.3) mg/dL Total Bilirubin (0.2-1.0) mg/dL AST (13-39) U/L ALT (7-52) U/L Alkaline Phosphatase (34-104) U/L Troponin I (<0.04) ng/mL Total Protein (6.4-8.9) g/dL Albumin (3.2-5.2) g/dL Globulin (2-4) g/dL Albumin/Globulin Ratio (1-3) Assess/Plan/Problems-Billing Assessment: 87 yo F h/o afib off AC since 2011 after large life threatening GI bleeding in setting of duodenal ulcer with recent stay 03/16 for CVA 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 Comfort Care awaiting likely home going after potential appeal. 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 appreciate Palliative care c/s (2) Atrial fibrillation Current Visit: Yes Status: Acute Priority: Medium Code(s): I48.91 - UNSPECIFIED ATRIAL FIBRILLATION SNOMED Code(s): 63016285 Comment: no meds, comfort care only (3) Dementia Current Visit: Yes Status: Acute Code(s): F03.90 - UNSPECIFIED DEMENTIA WITHOUT BEHAVIORAL DISTURBANCE SNOMED Code(s): 95264054 Comment: obtunded in setting of massive cva (4) Need for comfort care Current Visit: Yes Status: Acute Code(s): GTL4622 - SNOMED Code(s): 774303080 Comment: prn morphine and ativan. Comfortable appearing even with minimal prns. Will d/c atropine and start scopalamine patch Status and Disposition: medicine inpatient. comfort care, stable for d/c to home03/31 after appeal by family Attending: Sadiq Howard
[2017-03-30] MEDS ORDERED: Scopolamine 1.5 mg* PATCH TRANSDERM SCH (10:00)
[2017-03-30] MEDS ORDERED: Acetaminophen SUPP* 650 MG SUPP PR ONE (22:43)
[2017-03-31] MEDS: Morphine ORAL CONCENTRATE* 5 MG/0.25 ML ORAL.SYRIN SL PRN ×4 (01:47→18:26)
--- NOTE | 2017-03-31 10:40 | PN ---
Progress Note - Progress Note Date of Service: 03/31/17 Note: Palliative care follow up note: Patient resting comfortably. No increase work of breathing or rhonchi. Son and daughter at the bedside. Would prefer to keep her in the hospital. Because she is not actively dying, her life expectancy could be for another 7 days. They are concerned that she had some increase work of breathing this morning and last night that required suctioning that did improve. Spoke about medications for comfort and air hunger over suctioning. They feel more comfortable having suction at home. Will do scheduled atropine drops. Will have nurse do medication teaching for the family. Also will have case management look into discharge with suctioning.
[2017-03-31 10:51] VITALS: BP 103/62
[2017-03-31] MEDS: Atropine 1% (ORAL/SL)* 15 ML BTL SL SCH ×4 (11:57→18:26)
--- NOTE | 2017-03-31 13:36 | DS ---
DATE OF ADMISSION: 03/25/2017. DATE OF DISCHARGE: 03/31/2017. CHIEF COMPLAINT: Sudden right-sided weakness, found at side of bed. PRIMARY DIAGNOSIS: Cerebrovascular accident; discharging to comfort care. PAST MEDICAL HISTORY: A-fib; breast cancer, status post bilateral mastectomy; massive life-threatening GI bleed, off blood thinners, secondary to gastric ulcers; hypothyroidism; hypertension; dementia; anemia; vertigo; depression. HISTORY OF PRESENT ILLNESS: This 87-year-old female with a past medical history as above, recent admission to [facility] on March 16 with presumed CVA with right-sided weakness which resolved allowing her to be discharged neurologically intact. The night of admission, she went to bed in her usual state of health however, she noticed she needed to urinate every ten minutes or so. Her daughter later heard a thump and found her at the side of the bed not responding. She was noted to have a significant right facial droop and presented to the emergency room where she was found to have a GCS score of 6 and unable to contribute to any history. She had an MRI brain which showed a large, nonhemorrhagic left middle cerebral artery territory infarct on March 25 at 1:[address] of the brain from March 24 at 10:00 p.m. showed no apparent acute intracranial abnormality. She was evaluated by Dr. Dotson of Neurology and it was thought that she had a severe left internal carotid distribution infarction, almost certainly cardioembolic given the recent CT angiogram a [id number] ago. Her prognosis was quite dismal and Palliative care, Dr. Park, also was consulted. The patient's neurological status never improved passed GCS 6 to 7. The family ultimately decided to take the patient home with comfort care measures which were started earlier in the hospital course. The patient was very comfortable the last few days of admission, requiring almost no prn's of Morphine or Ativan. She did have occasional junky breath sounds per report and per family request, the patient was suctioned which seemed to relieve the sounds and secretions. The patient will be discharged home with request for hospital bed to enable positioning of the body, such that she can be comfortable and alleviate pain. She of note has no other bed at her home, which was removed. Also, request for suction equipment so that the patient can be kept free of secretions per family request. MEDICATIONS UPON DISCHARGE: 1. Scopolamine 1.5 mg transdermal patch. 2. Morphine 5 mg sublingual q.30 prn. 3. Lorazepam tabs sublingual 1 mg q.4 hours prn. 4. Atropine 1% two drops sublingual q.2 hours scheduled. DISPOSITION: To home with eventual assumption of lifetime care hospice services , likely on April 01. DISCHARGE DIET: NPO. Time spent on this discharge was 25 minutes. [id number] #: [id number] PRINCESS
== END 2017-03-31 19:00 | disposition home or self-care (01) | DRG 65 ==
LOC: ED 22:04 → MEDTELE 03-25 01:29 → OBSVTOIN 03-25 01:30 → MED 03-27 19:19
PROVIDERS: ADMIT Hospitalist; ATTEND Internal Medicine
DX: I63.412 Cerebral infarction due to embolism of left middle cerebral artery (principal); G81.91 Hemiplegia, unspecified affecting right dominant side; F03.90 Unspecified dementia, unspecified severity, without behavioral disturbance, psychotic disturbance, mood disturbance, and anxiety; K25.9 Gastric ulcer, unspecified as acute or chronic, without hemorrhage or perforation; I10 Essential (primary) hypertension; D64.9 Anemia, unspecified; S00.83XA Contusion of other part of head, initial encounter; I48.91 Unspecified atrial fibrillation; R40.2432 Glasgow coma scale score 3-8, at arrival to emergency department; E03.9 Hypothyroidism, unspecified; F32.9 Major depressive disorder, single episode, unspecified; Z66 Do not resuscitate; Z79.82 Long term (current) use of aspirin; Z79.899 Other long term (current) drug therapy; Z88.2 Allergy status to sulfonamides; Z88.8 Allergy status to other drugs, medicaments and biological substances; Z85.3 Personal history of malignant neoplasm of breast; Z90.13 Acquired absence of bilateral breasts and nipples; W06.XXXA Fall from bed, initial encounter; Z91.81 History of falling; Y92.003 Bedroom of unspecified non-institutional (private) residence as the place of occurrence of the external cause
CPT/HCPCS: 36415; 70450; 70551; 80053; 81003; 83605; 84484; 85025; 85027; 85610; 93005; A9270-GY; J0360; J1644